=== PATIENT | female | born 1975 | race Caucasian/White ===

== ENCOUNTER 2019-12-19 10:29 | Inpatient (IN) | payer SELFPAY ==
[2019-12-19] VITALS (13 sets, daily range): BP systolic 81–101; BP diastolic 52–81; PULSE 68–100; RESP 16–22; TEMP 36.6–37.1; O2SAT 95–100; BMI 19.3
--- NOTE | 2019-12-19 11:28 | ECG_ITS ---
[facility] Test Date: 2019-12-19 Pat Name: Arvin Whiting Department: Room: Gender: Female Salon/Spa Manager: : 1975 Requested By: Lenny Jacobs Order Number: [id number] Lito MD: Kirby Irizarry M.D. Measurements Intervals Amorita Rate: 91 P: 57 VT: 96 QRS: 37 QRSD: 81 T: 59 QT: 474 QTc: 584 Interpretive Statements SINUS RHYTHM WITH SHORT VT INTERVAL ST DEVIATION AND MODERATE T-WAVE ABNORMALITY, CONSIDER ANTEROLATERAL ISCHEMIA [-0.1+ mV T WAVE IN V3-V6] Compared to ECG 12/27/2017 11:05:17 No significant changes Electronically Signed On 12-19-2019 20:55:26 CDT by Kirby Irizarry M.D. [email or web address]/[id number] f
--- NOTE | 2019-12-19 11:28 | CT_ITS ---
WS: [id number] CT ABDOMEN PELVIS TECHNIQUE: Contrast-enhanced CT of the abdomen and pelvis with coronal and sagittal reformatted image s. CLINICAL INFORMATION: abd pain COMPARISON: CT 12 DLP: 278.[address] scans at [facility] use at least one of these dose optimization techniques: automat ed exposure control; mA and/or kV adjustment per patient size (includes targeted exams where dose is matched to clinical indication); or iterative reconstruction. FINDINGS: Diffuse inflammatory stranding and edema about the pancreas consistent with pancreatitis. Recommend c orrelation with pancreatic function studies. Cystic dilatation of the pancreatic duct likely related to chronic pancreatitis. Edema and fluid along the tail the pancreas. A few pancreatic calcifications . Common bile duct at the head of the pancreas measures 6 mm. Fluid distended gallbladder with mild g allbladder wall thickening and enhancement. Small amount of edema about the gallbladder with tiny juan culi or sludge. Mild diffuse fatty infiltration of the liver. Portal vein and splenic vein are patent. Normal spleen. Lung bases are well aerated. Normal GE junction. Mild diffuse thickening of the distal stomach exten ding in the pylorus can be seen with gastritis or may be reactive. Normal renal parenchymal enhanceme nt. No hydronephrosis. Bilateral renal cysts. Lobulated right renal cyst with calcifications measures 2.5 x 5.1 cm. Normal caliber abdominal aorta. Splenic vein is not visualized and likely thrombosed. This is likely chronic but new from previous. Inflammatory stranding and edema about the central mese ntery with a few reactive lymph nodes. Normal caliber abdominal aorta. Left parasagittal fat-containing umbilical hernia. No herniated bowel. Sigmoid diverticulosis. No tramaine dence of acute diverticulitis. No evidence of small or large bowel obstruction. Heterogeneous uterine enhancement with multiple myometrial lesions likely fibroids. Lobulated left ovarian cystic-appearin g lesion measuring 2.5 CCM. This can be followed up with ultrasound. CT/CT abdomen pelvis w con* [id number] IMPRESSION: 1. Peripancreatic inflammatory changes and edema most consistent with pancreat itis. Recommend correlation with pancreatic function studies. 2. Lobulated dilatation of the pancreatic duct likely sequelae of chronic panc reatitis. 3. Fluid distended gallbladder with wall thickening and peripheral enhancement may be reactive due to pancreatitis. This can be further evaluated with ultras ound. Suggestion of tiny gallbladder calculi or sludge. 4. Diffuse thickening of the body of the stomach extending to the pylorus can be seen with gastritis or may be likely reactive due to the pancreatitis. 5. Bilateral renal cysts largest in the right unchanged from previous. 6. Fat-containing left parasagittal umbilical hernia. No herniated bowel. 7. Fibroid uterus. 8. Slightly lobulated left adnexal adnexal cystic lesion measuring 2.5 CM. Thi s can be followed up with ultrasound on an elective basis. Notified Lenny Yanez DO at 12/19/2019 12:36 PM.
--- NOTE | 2019-12-19 11:29 | XR_ITS ---
WS: [id number] XR chest 1V portable [id number] REASON FOR EXAM: dyspnea/cough FINDINGS: The heart and mediastinum are within normal limits. No active pulmonary parenchymal or pleural disease is noted. The bony thorax is intact. XR/XR chest 1V portable [id number] IMPRESSION: No acute chest abnormality.
[2019-12-19] MEDS: iohexol 300 mg/mL 100 mL Btl IV (12:04)
[2019-12-19 12:30] LABS: Basophils # 0.1 10^3/uL (0.0-0.1); Basophils % 0.4 %; Eosinophils # 0.1 10^3/uL (0.0-0.8); Eosinophils % 0.9 %; Hematocrit 36.8 % (37.0-47.0); Hemoglobin 12.5 g/dL (11.5-15.3); Lymphocytes # 1.9 10^3/uL (0.8-4.8); Lymphocytes % 13.7 %; Mean Corpuscular Hemoglobin 32.1 pg (28.0-34.0); Mean Corpuscular Volume 94.4 fL (81-99); Mean Platelet Volume 10.2 fL (7.4-10.4); Monocytes # 1.3 10^3/uL (0.2-0.9); Monocytes % 9.5 %; Neutrophils # 10.26 10^3/uL (1.8-7.7); Neutrophils % 74.5 %; Nucleated Red Blood Cells % 0 %; Platelet Count 572 10^3/cmm (130-400); Red Cell Distribution Width 15.9 % (12.1-15.1); White Blood Count 13.8 10^3/uL (4.0-10.0)
[2019-12-19] MEDS: morphine 4 mg/mL SDV 1 mL IVP ×2 (12:30→18:09)
[2019-12-19] MEDS: ondansetron 2 mg/ML SDV 2 mL 4 MG IVP (12:31)
[2019-12-19] MEDS: sodium chloride 0.9% 1,000 ML 999 ML IV ×2 (12:31→13:40)
--- NOTE | 2019-12-19 12:34 | US_ITS ---
WS: [id number] ULTRASOUND ABDOMEN LIMITED CLINICAL INFORMATION: abd pain COMPARISON: CT earlier today FINDINGS: Liver Size: Normal. Craniocaudal length: 16.1 cm. Echogenicity: Normal. Surface nodularity: None. Mass (size and location): None. Bile ducts Intrahepatic ducts: Normal. Common bile duct diameter: 0.8 cm. Gallbladder Fluid distended gallbladder. Gallbladder wall measures 2.4 mm with mild thickening. Prominent common bile duct measuring 8 mm. Gallbladder sludge. No pericholecystic fluid. Pancreas Normal as visualized. Right kidney: Right renal cysts Hydronephrosis: None. Size: 10.6 cm x 5.2 cm x 5.3 cm. Abdominal aorta and IVC Visualized portions are normal. Ascites: None. US/US gall bladder [id number] IMPRESSION: 1. Fluid distended gallbladder with mild gallbladder wall thickening. Gallblad jimmie sludge. No pericholecystic fluid. 2. Prominent common bile duct measuring 8 mm. MRCP could be obtained to exclud e common bile duct calculus. 3. Incidental right renal cysts. No hydronephrosis.
[2019-12-19 13:02] LABS: Lactic Sepsis W/Reflex 1.7 mmol/L (0.5-2.2)
[2019-12-19 13:03] LABS: Alanine Aminotransferase 50 U/L (0-33); Albumin Level 2.6 g/dL (3.5-5.2); Alkaline Phosphatase 225 IU/L (35-105); Anion Gap 14.2 (5-19); Aspartate Amino Transferase 35 U/L (0-32); Blood Urea Nitrogen 5 mg/dL (6-20); Calcium 8.5 mg/dL (8.5-10.5); Carbon Dioxide 31 mmol/L (22-29); Chloride 91 mmol/L (98-107); Creatinine Clr Calc Pharmacy 137.1599; Globulin 3.6 g/dL (1.3-4.6); Glomerular Filtration Rate 135.3 mL/min (90-130); Glucose 113 mg/dL (65-115); Lipase 56 U/L (13-60); Osmolality Calculated 276 mOsm/kg (285-295); Sodium 134 mmol/L (136-145); Total Bilirubin 0.5 mg/dL (0.15-1.2); Total Protein 6.2 g/dL (6.6-8.7)
[2019-12-19 13:10] LABS: Ketone (Acetest) Serum Negative (Negative); Potassium 2.2 mmol/L (3.5-5.1)
[2019-12-19 13:10] LABS: Glucose Urine UA Norm (Normal); Ketones Urine Negative (Negative); Protein Urine 1+ (Negative)
[2019-12-19 13:11] LABS: Add Urine Microscopic? YES; Leukocyte Esterase Urine Trace (Negative)
[2019-12-19 13:15] LABS: Urine Color Red (Yellow)
[2019-12-19 13:18] LABS: Bilirubin Urine Neg (Negative); Urine Appearance Cloudy (CLEAR); Urobilinogen Urine Norm (Negative)
[2019-12-19 13:19] LABS: Blood Urine 3+ (Negative); Nitrate Urine Negative (Negative); Sulfosalicylic Acid Urine Positive (Negative); pH Urine 8 (5-7)
[2019-12-19 13:21] LABS: Add Urine Culture? Yes; RBC Urine TOO NUMEROUS TO CNT /hpf (0-2); Squamous Epithelial Cell Urine 0-4 /hpf (0-5)
[2019-12-19] MEDS: morphine 4 mg/mL SDV 1 mL 2 MG IVP (13:40)
[2019-12-19] MEDS: potassium chloride premix 100 ML 25 MEQ IV ×2 (13:40→18:45)
[2019-12-19 13:49] LABS: Bacteria Urine 1+ /hpf
--- NOTE | 2019-12-19 14:01 | W.ED.NAVMDI ---
HPI - Nausea/Vomiting/Diarrhea General: Chief complaint: Nausea/Vomiting/Diarrhea Stated complaint: N/V Time Seen by Provider: 12/19/19 10:45 History of Present Illness: HPI Narrative: 44-year-old female comes in complaining of nausea vomiting for the last 2 weeks. She has a history of recurrent pancreatitis she does still drink alcohol but only admits to drinking alcohol once a week. She has had problems in the past with several admissions. She does not have any esophageal varices or cirrhosis that she knows of. She states she is not been able to keep down any food or fluids for the last 2 weeks. She denies any chest pain denies any difficulty with breathing. MD elicited complaint: nausea and vomiting Pertinent past history: pacreatitis Onset (ago): week(s) (2) Description of vomiting: bilious Associated nausea: Yes Associated abdominal pain: Yes Location of pain: LUQ Pain consistency: constant Severity: severe Quality: cramping Exacerbating factors: eating Relieving factors: other (Fasting) Associated symtoms: Reports bloating, decreased urine output and nausea; Denies altered mental status, anxiety, change in vision, chest pain, cough, diaphoresis, dizziness, dysuria, epistaxis, fatigue, fecal incontinence, fevers/chills, headache(s), anorexia, malaise, myalgias, numbness, palpitations, rash, short of breath, syncope, tenesmus, tinnitus or weakness Review of Systems Const: Denies: fatigue, malaise or diaphoresis Eyes: Denies: change in vision ENMT: Denies: tinnitus or epistaxis Card: Denies: chest pain, palpitations or syncope Resp: Denies: dyspnea, productive cough or non-productive cough GI: Reports: abdominal pain, nausea, vomiting and bloating; Denies: fecal incontinence : Denies: dysuria Skin/Breast: Denies: rash or pruritus Neuro: Denies: headache(s) or dizziness Psych: Denies: anxiety PFSH ED PFSH: Medical History Pancreatitis Surgical History History of biliary duct stent placement History of biliary stenting and removal. Possible biliary leak. History of History of right oophorectomy S/P clamping of cerebral aneurysm Family History Other No significant family history Social History Smoking and tobacco status: current every day smoker cigarettes Packs smoked per day: 0.5 Alcohol intake: current Alcohol intake frequency: few times a week Lives independently: Yes Household members: spouse Marital status: Current occupational status: unemployed Female Reproductive History: Date of last menstrual period: 12/19/19 Physical Exam Const: COMMON NORMALS: no acute distress EXAM LIMITATIONS: no altered mental status GENERAL APPEARANCE: cooperative and comfortable ORIENTATION/CONSCIOUSNESS: Yes awake, Yes oriented to person, Yes oriented to place and Yes oriented to time HENMT: COMMON NORMALS: normocephalic, atraumatic and hearing grossly normal bilaterally HEAD & SCALP: normocephalic and atraumatic Eye: COMMON NORMALS: Equal, round and reactive pupils present, EOMs intact bilaterally, conjunctivae normal and no scleral icterus CONJUNCTIVA: Yes conjunctivae normal PUPIL: Yes Equal, round and reactive pupils present Neck/C-Spine: COMMON NORMALS: full ROM, no lymphadenopathy, supple and no JVD Lymph: LYMPHATIC: no lymphadenopathy noted and no lymphedema noted Resp: COMMON NORMALS: normal respiratory effort, No retractions, No use of accessory muscles and clear to auscultation bilaterally AUSCULTATION: clear to auscultation bilaterally Cardio: COMMON NORMALS: no JVD, regular rate, regular rhythm and No murmurs present (Cardio) RATE: regular rate RHYTHM: regular rhythm GI: COMMON NORMALS: Soft to palpation and No hepatosplenomegaly present AUSCULTATION: Yes normoactive bowel sounds PALPATION: Yes Soft to palpation, Yes Tenderness to palpation present (GI) (Epigastric and left upper quadrants), No Guarding due to palpation present (GI) and Yes No hepatosplenomegaly present Extremity: COMMON NORMALS: normal to inspection, capillary refill normal, no clubbing, cyanosis or edema, no calf tenderness and no pedal edema Neuro: SENSORIUM/ORIENTATION: Yes oriented to person, Yes oriented to place and Yes oriented to time Skin: COMMON NORMALS: no rashes or lesions noted GENERAL SKIN EXAM: no rashes or lesions noted Course Vital Signs: Vital signs: Vital Signs Temperature 98.4 F 12/21/19 17:14 Pulse Rate 91 12/21/19 17:14 Respiratory Rate 18 12/21/19 17:14 Blood Pressure 112/60 12/21/19 17:14 Pulse Oximetry 99 12/21/19 17:14 MDM - Nausea/Vomiting/Diarrhea Lab Data: Labs: Lab Results 12/19/19 12/19/19 12/19/19 Range/Units 12:20 12:20 12:20 WBC 13.8 H (4.0-10.0) 10^3/ uL RBC 3.90 L (4.1-5.3) 10^6/u L Hgb 12.5 (11.5-15.3) g/dL Hct 36.8 L (37.0-47.0) % MCV 94.4 (81-99) fL MCH 32.1 (28.0-34.0) pg MCHC 34.0 (30.0-36.0) g/dL RDW 15.9 H (12.1-15.1) % Plt Count 572 H (130-400) 10^3/c mm MPV 10.2 (7.4-10.4) fL Neut % (Auto) 74.5 % Lymph % (Auto) 13.7 % [place] % (Auto) 9.5 % Eos % (Auto) 0.9 % Baso % (Auto) 0.4 % Neut # (Auto) 10.26 H (1.8-7.7) 10^3/u L Lymph # (Auto) 1.9 (0.8-4.8) 10^3/u L [place] # (Auto) 1.3 H (0.2-0.9) 10^3/u L Eos # (Auto) 0.1 (0.0-0.8) 10^3/u L Baso # (Auto) 0.1 (0.0-0.1) 10^3/u L Nucleated RBC % (a uto) 0 % Nucleated RBCs # 0.0 /100WBC Sodium 134 L (136-145) mmol/L Potassium 2.2 L* (3.5-5.1) mmol/L Chloride 91 L (98-107) mmol/L Carbon Dioxide 31 H (22-29) mmol/L Anion Gap 14.2 (5-19) BUN 5 L (6-20) mg/dL Creatinine 0.5 (0.5-0.9) mg/dL GFR Calculation 135.3 H (90-130) mL/min Glucose 113 (65-115) mg/dL Calculated Osmolal ity 276 L (285-295) mOsm/k g Lactic Acid 1.7 (0.5-2.2) mmol/L Calcium 8.5 (8.5-10.5) mg/dL Total Bilirubin 0.5 (0.15-1.2) mg/dL AST 35 H (0-32) U/L ALT 50 H (0-33) U/L Alkaline Phosphata se 225 H (35-105) IU/L Total Protein 6.2 L (6.6-8.7) g/dL Albumin 2.6 L (3.5-5.2) g/dL Globulin 3.6 (1.3-4.6) g/dL Triglycerides (0-150) mg/dL Lipase 56 (13-60) U/L Urine Color (Yellow) Urine Appearance (CLEAR) Urine pH (5-7) Ur Specific Gravit y (1.005-1.030) Urine Protein (Negative) Urine Glucose (UA) (Normal) Urine Ketones (Negative) Urine Blood (Negative) Urine Nitrate (Negative) Urine Bilirubin (Negative) Prot Sulfosalicyli c Acd (Negative) Urine Urobilinogen (Negative) mg/dL Ur Leukocyte Agata ase (Negative) Urine RBC (0-2) /hpf Urine WBC (0-5) /hpf Ur Squamous Epith Cells (0-5) /hpf Amorphous Sediment Urine Bacteria (NONE) /hpf Serum Ketones Negative (Negative) 12/19/19 12/19/19 Range/Units 12:20 12:24 WBC (4.0-10.0) 10^3/ uL RBC (4.1-5.3) 10^6/u L Hgb (11.5-15.3) g/dL Hct (37.0-47.0) % MCV (81-99) fL MCH (28.0-34.0) pg MCHC (30.0-36.0) g/dL RDW (12.1-15.1) % Plt Count (130-400) 10^3/c mm MPV (7.4-10.4) fL Neut % (Auto) % Lymph % (Auto) % [place] % (Auto) % Eos % (Auto) % Baso % (Auto) % Neut # (Auto) (1.8-7.7) 10^3/u L Lymph # (Auto) (0.8-4.8) 10^3/u L [place] # (Auto) (0.2-0.9) 10^3/u L Eos # (Auto) (0.0-0.8) 10^3/u L Baso # (Auto) (0.0-0.1) 10^3/u L Nucleated RBC % (a uto) % Nucleated RBCs # /100WBC Sodium (136-145) mmol/L Potassium (3.5-5.1) mmol/L Chloride (98-107) mmol/L Carbon Dioxide (22-29) mmol/L Anion Gap (5-19) BUN (6-20) mg/dL Creatinine (0.5-0.9) mg/dL GFR Calculation (90-130) mL/min Glucose (65-115) mg/dL Calculated Osmolal ity (285-295) mOsm/k g Lactic Acid (0.5-2.2) mmol/L Calcium (8.5-10.5) mg/dL Total Bilirubin (0.15-1.2) mg/dL AST (0-32) U/L ALT (0-33) U/L Alkaline Phosphata se (35-105) IU/L Total Protein (6.6-8.7) g/dL Albumin (3.5-5.2) g/dL Globulin (1.3-4.6) g/dL Triglycerides 146 (0-150) mg/dL Lipase (13-60) U/L Urine Color Red (Yellow) Urine Appearance Cloudy (CLEAR) Urine pH 8 H (5-7) Ur Specific Gravit y 1.010 (1.005-1.030) Urine Protein 1+ H (Negative) Urine Glucose (UA) Norm (Normal) Urine Ketones Negative (Negative) Urine Blood 3+ H (Negative) Urine Nitrate Negative (Negative) Urine Bilirubin Neg (Negative) Prot Sulfosalicyli c Acd Positive (Negative) Urine Urobilinogen Norm (Negative) mg/dL Ur Leukocyte Agata ase Trace H (Negative) Urine RBC Too numerous to c nt H (0-2) /hpf Urine WBC 5-10 H (0-5) /hpf Ur Squamous Epith Cells 0-4 H (0-5) /hpf Amorphous Sediment Not Reportable Urine Bacteria 1+ H (NONE) /hpf Serum Ketones (Negative) Discharge Plan Discharge Patient Disposition: Admitted As Inpatient Admit Provider: Arturo Lemus Clinical Impression: Gastritis, Acute pancreatitis, Abnormal transaminases Condition: Stable Referrals: [facility], gastroenterology [Other] (Soonest available appointment for follow-up on gastritis, duodenitis, gallbladder changes with dilation, wall thickening 2.4 mm, CBD dilation 8 mm, epigastric discomfort possible pancreatitis.) Rebekah Duffy, ZAY [Referring] - 12/29/19 9:30 am (Gastritis, duodenitis, gallbladder changes with dilation, wall thickening 2.4 mm, CBD dilation 8 mm, normal HIDA, epigastric discomfort possible pancreatitis.) Patient Instructions: Sucralfate (By mouth), Potassium Chloride (By mouth), Pantoprazole (By mouth), Hydrocodone (By mouth), Uterine Fibroids (DC), Effects of Smoking, Alcohol, and Drugs on (GEN), Hypokalemia (DC), Umbilical Hernia (DC) Additional Instructions: Please avoid any alcohol whatsoever as it may contribute to inflammation of the stomach, stomach ulcers, as well as may trigger episode of pancreatitis. Avoid any NSAIDs like ibuprofen, Aleve, etc. Due to suspicion of gastritis, duodenitis you are given prescription for acid julio medication Protonix, you may also add sucralfate to help with symptoms. Advance your diet slowly as tolerating. Please make sure to follow-up with gastroenterology to consider additional evaluation by endoscopy to exclude other more dangerous causes of stomach wall thickening. Also to assess as discussed for possibility of episode of pancreatitis. Please have your primary care doctor follow-up your levels of sodium and potassium to make sure they are staying normal. Please discuss with your primary care doctor repeating urinalysis due to small amount of blood incidentally noted there. Please discuss with your primary care doctor regarding follow-up of incidentally found 2.5 cm cyst adjacent to left ovary. Discussed arrangement for follow-up ultrasound. Please discuss with your primary care doctor incidentally noted small umbilical hernia which is not containing any bowel. Interventions: ED Discharge Assessment Last Done: 12/19/19 20:37 ED Charges Last Done: 12/19/19 20:37 Discharge Date/Time: 12/19/19 20:55 Coding Level of Care Code ED Rim Turning Machine Operator for Chg Fwd Exam Comprehensive
[2019-12-19] MEDS: sodium chloride 0.9% 1,000 ML 150 ML IV (15:17)
--- NOTE | 2019-12-19 16:54 | PC.NURSE ---
transport to patient transported to MRI by ambulance.
--- NOTE | 2019-12-19 19:46 | PM.HP ---
Providers/Chief Complaint Chief Complaint: N/V History of Present Illness Arvin Whiting is a 44 year old female presents with 2 weeks of upper abdominal/gastric discomfort, nausea, vomiting, poor oral intake. Symptoms have not gotten better. She has had some episodes in the past which last several days, but this has been longer than that. Due to lack of improvement she decided to come into the ER. She has history of pancreatitis, biliary duct stenting after extensive ablation at [facility] in 2018, per her without finding of malignancy, but with possible biliary leak? With gallbladder still in place, with history of biliary sludge. In ER she is found dehydrated, received bolus of IV fluid, nausea and pain medication. With noted leukocytosis, although afebrile, blood pressure somewhat soft but without hypotension, additionally on laboratory work-up with finding of moderate alkaline phosphatase elevation up to 225, minimal AST and ALT elevation up to 35 and 50 respectively, normal T bili, microscopic hematuria, underwent assessment by CT abdomen pelvis with findings of peripancreatic inflammation and edema concerning for pancreatitis, lobulated dilation of pancreatic duct suspected sequela of chronic pancreatitis, fluid distended gallbladder with wall thickening, peripheral enhancement, possibly reactive, suggestion of tiny gallbladder calculi or sludge. Diffuse thickening of the body of the stomach extending to the pylorus suspicious for gastritis. Bilateral renal cysts unchanged from prior. Fat-containing left parasagittal umbilical hernia. Fibroid uterus. Slightly lobulated left adnexal cystic lesion measuring 2.5 cm. Follow-up: Bladder ultrasound with fluid distended gallbladder with mild gallbladder wall thickening, gallbladder sludge, no pericholecystic fluid. Prominent common bile duct at 8 mm, consider MRCP, incidental right renal cysts. No hydronephrosis. Normal pancreas. Lipase was 56. She does not drink alcohol which she says does on the weekends with her up to 3 drinks per week. Smokes half pack of cigarettes per day. Discussed with her and her concern for possibility of pancreatitis, although lipase is noted normal. Does have history of biliary duct instrumentation, stenting which had subsequently been taken out after follow-up with [facility] specialist. MRCP was considered and attempted in ER, however, due to presence of aneurysmal clips, MRI was not deemed safe until further information is available. We discussed that MRCP can be immediately obtained. Will try to request records from [facility] regards to her prior brain surgery for aneurysm. We discussed possibilities of pancreatitis, possibilities of gastritis, possibly secondary to alcohol intake. She denies NSAID use. Discussed that in case of pancreatitis we do not have possibility for evaluation by ERCP or gastroenterology here. Discussed risks of progression to severe pancreatitis and plans of management here including for now supportive care, and obtaining additional information to allow for assessment by MRCP, and that transfer still may be necessary depending on her condition and findings. She is currently wanting to stay here to initiate assessment and treatment plan as discussed. Does agree and understand that we may seek transfer additionally depending on further developments. Review of Systems Const: Reports: change in appetite; Denies: fever(s), chills, body aches or malaise Eyes: Denies: change in vision or eye redness ENMT: Denies: throat pain, oral sores or ear or mastoid pain Card: Denies: chest pain, edema, pre-syncope or dyspnea on exertion Resp: Denies: dyspnea, productive cough, change in phlegm color or hemoptysis GI: Reports: abdominal pain, nausea, vomiting and other (Sometimes gets loose stools which she is reviewed to levothyroxine. Denies chronic persistent diarrhea.); Denies: hematemesis, coffee ground emesis, constipation, hematochezia or melena : Denies: flank pain, urinary frequency or hematuria Musc: Denies: back pain, joint swelling or joint redness Skin/Breast: Denies: rash, sores or new lesions Neuro: Denies: headache(s), numbness in extremities, weakness in extremities, dizziness, confusion or seizure-like activity Endo: Denies: polyuria or polydipsia Tom/Lymph: Denies: easy bleeding or purpura All/Imm: Denies: urticaria, throat swelling or tongue swelling Medications/Allergies Home Medications Medication Instructions Recorded Confirmed Last Taken Type acetaminophen [Tylenol Extra 1,000 mg PO PRN 12/19/19 12/19/19 Unknown History Strength] alum-mag hydroxide-simeth [Maalox 20 ml PO PRN 12/19/19 12/19/19 12/17/19 History Maximum Strength] diphenhydramine HCl [Benadryl] 75 mg PO PRN 12/19/19 12/19/19 Unknown History fluoxetine 40 mg PO DAILY 12/19/19 12/19/19 12/19/19 History levothyroxine [Euthyrox] 25 mcg PO DAILY 12/19/19 12/19/19 12/19/19 History metoprolol tartrate 50 mg PO BID 12/19/19 12/19/19 12/19/19 History trazodone 150 mg PO BEDTIME 12/19/19 12/19/19 12/18/19 History Allergies Allergy/AdvReac Type Severity Reaction Status Date / Time codeine Allergy ALGY-Swell Verified 12/19/19 12:35 Lip/Tongue/Throat meperidine [From Demerol] Allergy ADR-Swelling Verified 12/19/19 12:35 of the Eye PFSH Acute PFSH: Medical History Pancreatitis Surgical History History of biliary duct stent placement History of biliary stenting and removal. Possible biliary leak. History of History of right oophorectomy S/P clamping of cerebral aneurysm Family History Other No significant family history Social History Smoking and tobacco status: current every day smoker cigarettes Packs smoked per day: 0.5 Alcohol intake: current Alcohol intake frequency: few times a week Substance/Drug Use: never Lives independently: Yes Household members: spouse Marital status: Current occupational status: unemployed Female Reproductive History: Date of last menstrual period: 12/19/19 Vitals/I&O/Wt Last Vital Signs Temp 97.9 F 12/19/19 10:34 Pulse 71 12/19/19 18:30 Resp 22 H 12/19/19 18:30 BP 85/59 12/19/19 18:30 Pulse Ox 97 12/19/19 18:30 12/19/19 12/19/19 12/19/19 06:59 14:59 22:59 Intake Total 1000 / 1000 100 / 1100 Balance 1000 / 1000 100 / 1100 Weight last 48 hrs Weight 55.792 kg Physical Exam Const: COMMON NORMALS: no acute distress and patient oriented x3 HENMT: COMMON NORMALS: oropharynx normal Neck/C-Spine: COMMON NORMALS: no JVD Resp: COMMON NORMALS: normal respiratory effort and clear to auscultation bilaterally AUSCULTATION: clear to auscultation bilaterally Cardio: COMMON NORMALS: no JVD, regular rhythm, S1 normal heart sound present, S2 normal heart sound present and No murmurs present (Cardio) RHYTHM: regular rhythm HEART SOUNDS: S1 normal heart sound present and S2 normal heart sound present GI: COMMON NORMALS: Normal to inspection, nondistended, normoactive bowel sounds present and Soft to palpation PALPATION: Yes Soft to palpation and Yes Tenderness to palpation present (GI) (Across upper abdomen, periumbilical more so on the left, less on the right upper quadrant) Extremity: COMMON NORMALS: no joint enlargement and no pedal edema Neuro: COMMON NORMALS: patient oriented x3 and moves all extremities Skin: COMMON NORMALS: no rashes or lesions noted GENERAL SKIN EXAM: no rashes or lesions noted Data : 12/19/19 12:20 12/19/19 12:20 A&P Assessment and plan (1) Gastritis: Gastric wall thickening itching extending to the pylorus. She does have tenderness mostly on the left side. Discussed with her , pain status is a possibility, but also there is possibility that she is treated gastritis with some local inflammation extending to the pancreas, pancreas appears normal to sound. Lipase is normal. She does not alcohol on the weekends, says only 2-3 drinks, although kind of looked at the when she was stating this. He did confirm this. At this time treated with bowel rest as below. PI BID. For as needed for nausea. Monitor hemoglobin. She does not take NSAIDs. Status: Acute (2) Pancreatitis: Findings concerning for possible pancreatitis on CT, however, life is normal, pancreas also appears normal on ultrasound. I suspect more that this may be secondary to gastritis, but discussed with her we cannot exclude that she does not have pancreatitis. Even with normal lipase, if has chronic pancreatitis acute on chronic pancreatitis is still possible. At this time conservative management with bowel rest, supportive care with IV hydration, nausea and pain medications. Discussed with her diet so far in ER they have had no success obtaining MRCP due to prior aneurysmal clips. We will need more information before can proceed with that test. Discussed with her we do not have GI or ERCP available in house. She is wanting to stay here to initiate conservative treatment for now, but understands that we may still need to seek transfer to higher level facility depending on findings or her condition. She understands she may worsen and potentially progressed to severe, potentially life-threatening pancreatitis. She also requests to have sips of water (not swabs), and still wants to have them after discussion of bowel rest and expressed concern for possibly worsening pancreatitis. States that she understands the risks. States that she will let us know if she is at all feeling worse. We will check triglycerides. Discussed with her to abstain from any alcohol intake as she says she takes 2-3 drinks on the weekends . She and her verbalized understanding that any alcohol may still trigger pancreatitis. Would encourage also smoking cessation. She states that previously was evaluated for malignancy by ERCP, without finding of malignancy. Her stated that she has had biliary stents placed at [facility], and subsequently removed. They are not sure why exactly, but thought that perhaps there was some leak . She still has her gallbladder, and says that specialist did not think it was necessary to have it removed (despite history of sludge). Discussed with them that concern may be for possibility of prior stricture along biliary pancreatic ducts, and perhaps this could have triggered the pancreatitis. Discussed that if this were the case, she again requires additional assessment and treatment, possibly with ERCP, possibly stenting. They understand that her condition may worsen unexpectedly. Status: Acute (3) Gallbladder dilatation: GB dilation noted on ultrasonography, with some wall thickening up to 2.4 mm, CBD dilation up to 8 mm. Briefly discussed with on-call surgeon, and this does not appear to be overly impressive, however, will monitor. She actually is less tender on the right side, more so in epigastrium, left side, periumbilically. There is no pericholecystic fluid. Per discussion concern for acute cholecystitis at this time is lower. She does have some alkaline phosphatase elevation up to 250, minimal elevation of AST and ALT. T bili is normal. Monitor liver parameters and symptomatology. Bowel rest. For now no antibiotics, but low threshold to initiate in case of any concerns for infection. She appears to be hemoconcentrated with some elevation platelets, WBC count, appears dry on exam. WBC elevation I believe is secondary to her dehydration, vomiting. She does appear to perhaps have some chronic elevation also of white blood cells and platelet levels going back to 2018 December and February. Status: Acute (4) Hypokalemia: Received replacement. Recheck. Check magnesium. Status: Acute (5) Hyponatremia: Mild hyponatremia, hypovolemic secondary to dehydration, vomiting. Received a liter of fluid bolus. Continue IV hydration. Recheck. Status: Acute (6) Transaminitis: Minimal elevation of AST and ALT. Suspected secondary to dehydration, vomiting, possibly some local inflammation, perhaps from gastritis, duodenitis. Does have alkaline phosphatase levels however this appears to be more chronic, although currently is higher than before at 225. Monitor. Additional assessment and treatment as above. Status: Acute (7) Microscopic hematuria: Does have some renal cysts noted bilaterally. Perhaps the reason. Otherwise not suggestive of UTI. Denies any urinary symptoms. No renal stone. At this time monitor, and may benefit from additional outpatient reassessment. Status: Acute (8) Smoking addiction: Encourage cessation. Nicotine patch. Status: Acute (9) Fibroid uterus: Incidentally noted. Status: Acute (10) Adnexal cyst: 2.5 cm left adnexal cyst incidentally noted. Consider nonemergent additional evaluation by ultrasonography. Status: Acute (11) Umbilical hernia: Incidentally noted. Not containing bowel. Follow-up in office. Status: Acute Attestations Medical Necessity Statement*: Admission of over 2 midnights is continued for assessment of management of severe gastritis, duodenitis, possible pancreatitis, with history of pancreatitis in the past requiring additional extensive assessment. Coding Level of Care Code Acute [employer] Director for [facility] Fwd Diagnoses Gastritis K29.70 Pancreatitis K85.90 Gallbladder dilatation K82.8 Hypokalemia E87.6 Hyponatremia E87.1 Transaminitis R74.01 Microscopic hematuria R31.29 Smoking addiction F17.200 Fibroid uterus D25.9 Adnexal cyst N94.9 Umbilical hernia K42.9
[2019-12-19 20:16] LABS: Triglycerides 146 mg/dL (0-150)
[2019-12-19] MEDS: pantoprazole 40 mg SDV IVP (20:20)
[2019-12-19] MEDS: trazodone 150 mg Tablet PO (22:09)
[2019-12-19] MEDS: nicotine 14 mg Patch 1 PATCH TRANSDERMA (22:09)
[2019-12-19] MEDS: dextrose 5%-sod chloride 0.45% 1,000 ML 100 ML IV (22:10)
[2019-12-19] MEDS: heparin 5,000 unit/mL INJ 1 mL 5000 UNIT SUBCUT (22:10)
[2019-12-20] VITALS (10 sets, daily range): BP systolic 91–122; BP diastolic 59–73; PULSE 84–113; RESP 17–20; TEMP 36.2–37.5; O2SAT 92–99; BMI 21.6
[2019-12-20] MEDS: morphine 4 mg/mL SDV 1 mL IVP ×4 (02:00→17:19)
[2019-12-20 03:34] LABS: Basophils % 0.3 %; Eosinophils # 0.2 10^3/uL (0.0-0.8); Eosinophils % 2.6 %; Hematocrit 28.6 % (37.0-47.0); Hemoglobin 9.3 g/dL (11.5-15.3); Lymphocytes # 2.3 10^3/uL (0.8-4.8); Mean Corpuscular HGB Conc 32.5 g/dL (30.0-36.0); Mean Corpuscular Hemoglobin 31.5 pg (28.0-34.0); Mean Corpuscular Volume 96.9 fL (81-99); Mean Platelet Volume 10.5 fL (7.4-10.4); Monocytes # 0.8 10^3/uL (0.2-0.9); Monocytes % 9.1 %; Neutrophils # 5.67 10^3/uL (1.8-7.7); Neutrophils % 61.5 %; Nucleated Red Blood Cells % 0 %; Platelet Count 445 10^3/cmm (130-400); Red Blood Count 2.95 10^6/uL (4.1-5.3); Red Cell Distribution Width 16.5 % (12.1-15.1); White Blood Count 9.2 10^3/uL (4.0-10.0)
[2019-12-20 03:58] LABS: Alanine Aminotransferase 35 U/L (0-33); Alkaline Phosphatase 169 IU/L (35-105); Anion Gap 9.9 (5-19); Aspartate Amino Transferase 21 U/L (0-32); Blood Urea Nitrogen 3 mg/dL (6-20); Calcium 7.6 mg/dL (8.5-10.5); Carbon Dioxide 25 mmol/L (22-29); Chloride 111 mmol/L (98-107); Globulin 2.9 g/dL (1.3-4.6); Glucose 120 mg/dL (65-115); Lipase 45 U/L (13-60); Osmolality Calculated 294 mOsm/kg (285-295); Sodium 143 mmol/L (136-145); Total Bilirubin 0.3 mg/dL (0.15-1.2); Total Protein 4.9 g/dL (6.6-8.7)
[2019-12-20 03:59] LABS: Magnesium 2.2 mg/dL (1.7-2.3)
[2019-12-20 04:01] LABS: Potassium 2.9 mmol/L (3.5-5.1)
[2019-12-20] MEDS: lidocaine 1% 5 ML in potassium chloride premix 100 ML 25 ML IV (05:38)
[2019-12-20] MEDS: pantoprazole 40 mg SDV IVP ×2 (08:11→21:12)
[2019-12-20] MEDS: fluoxetine 20 mg Capsule 40 MG PO (08:11)
[2019-12-20] MEDS: levothyroxine 25 mcg Tablet PO (08:11)
[2019-12-20] MEDS: heparin 5,000 unit/mL INJ 1 mL 5000 UNIT SUBCUT ×2 (08:11→21:40)
[2019-12-20] MEDS: nicotine 14 mg Patch 1 PATCH TRANSDERMA (08:12)
--- NOTE | 2019-12-20 09:23 | PM.PN ---
Subjective Subjective: Interval history: She is feeling better today. Says she is starving for all kinds of foods and wants to have some water BRENT. Wants to try some broth and jello. Otherwise no vomiting. Is still having some upper abdominal Vitals/I&O/Wt Last Vital Signs Temp 98.7 F 12/20/19 08:00 Pulse 96 12/20/19 08:00 Resp 20 H 12/20/19 08:12 BP 107/73 12/20/19 08:00 Pulse Ox 99 12/20/19 08:00 12/19/19 12/20/19 12/20/19 22:59 06:59 14:59 Intake Total 1100 / 2100 Output Total 400 / 400 Balance 1099 / 2099 -400 / -400 Weight last 48 hrs Weight 62.596 kg Weight 55.792 kg Physical Exam Const: COMMON NORMALS: no acute distress and patient oriented x3 OTHER: Awake, alert, full of energy. HENMT: COMMON NORMALS: oropharynx normal Neck/C-Spine: COMMON NORMALS: no JVD Resp: COMMON NORMALS: normal respiratory effort and clear to auscultation bilaterally AUSCULTATION: clear to auscultation bilaterally Cardio: COMMON NORMALS: no JVD, regular rhythm, S1 normal heart sound present, S2 normal heart sound present and No murmurs present (Cardio) RHYTHM: regular rhythm HEART SOUNDS: S1 normal heart sound present and S2 normal heart sound present GI: COMMON NORMALS: Normal to inspection, nondistended, normoactive bowel sounds present and Soft to palpation PALPATION: Yes Soft to palpation and Yes Tenderness to palpation present (GI) (Less tenderness across upper abdomen, periumbilical more so on the left, less on the right upper quadrant) Extremity: COMMON NORMALS: no joint enlargement and no pedal edema Neuro: COMMON NORMALS: patient oriented x3 and moves all extremities Skin: COMMON NORMALS: no rashes or lesions noted GENERAL SKIN EXAM: no rashes or lesions noted Data : 12/20/19 03:17 12/20/19 03:17 A&P Assessment and plan (1) Gastritis: She is feeling better today. Is hungry. Pain is somewhat better. We discussed again regarding differential diagnosis with suspicion of gastritis, but also possible pancreatitis, although lipase again has not risen today. She is adamant that if she wants to try drinking some water, wants to try some clear liquid diet. Discussed with her if we are able to obtain MRCP for now we will hold p.o. intake, but if this needs to be delayed further will start. She is agreeable. At this time continue PPI. Will check for H. pylori. Continue to encourage avoidance of alcohol. Gastric wall thickening on CT extending to the pylorus. She does have tenderness mostly on the left side. Discussed with her , pain status is a possibility, but also there is possibility that she is treated gastritis with some local inflammation extending to the pancreas, pancreas appears normal on ultrasound. Lipase is normal. She does drinks alcohol on the weekends. Status: Acute (2) Pancreatitis: Lipase without elevation. Abdominal pain is better today. She is hungry. Liver parameters are better. At this time suspicion is still mostly for gastritis, although discussed with her possible pancreatitis. We have just obtained records from [facility] regarding past intracranial surgery, and so we will see whether she can have MRCP done. She wants to try liquids after that. She does drink alcohol on weekends, discussed with her cessation. Continue to reinforce. Triglycerides not elevated. Calcium is normal. No biliary stones, gallbladder sludge. Previously CBD stenting, possible leak? Not clear if due to stenosis. Not clear if that is why gallbladder has been left in place after extensive evaluation and treatment at [facility]. Stents have since been removed. Continue supportive care at this time. We discussed further assessment and treatment options. We will try to obtain MRCP here and in addition depending on her clinical condition we will try to get her to be seen by GI either on outpatient basis versus requiring hospital hospital transfer. She is agreeable with plans. Findings concerning for possible pancreatitis on CT, however, lipase is normal, pancreas also appears normal on ultrasound. I suspect more that this may be secondary to gastritis, but discussed with her we cannot exclude that she does not have pancreatitis. Even with normal lipase, if has chronic pancreatitis acute on chronic pancreatitis is still possible. At this time conservative management with bowel rest, supportive care with IV hydration, nausea and pain medications. Discussed with her to abstain from any alcohol intake as she says she takes 2-3 drinks on the weekends . She and her verbalized understanding that any alcohol may still trigger pancreatitis. Would encourage also smoking cessation. She states that previously was evaluated for malignancy by ERCP, without finding of malignancy. Her stated that she has had biliary stents placed at [facility], and subsequently removed. They are not sure why exactly, but thought that perhaps there was some leak . She still has her gallbladder, and says that specialist did not think it was necessary to have it removed (despite history of sludge). Discussed with them that concern may be for possibility of prior stricture along biliary pancreatic ducts, and perhaps this could have triggered the pancreatitis. Discussed that if this were the case, she again requires additional assessment and treatment, possibly with ERCP, possibly stenting. They understand that her condition may worsen unexpectedly. Status: Acute (3) Gallbladder dilatation: Abdominal pain is a little bit better. She is hungry. GB dilation noted on ultrasonography, with some wall thickening up to 2.4 mm, CBD dilation up to 8 mm. Briefly discussed with on-call surgeon, and this does not appear to be overly impressive, however, will monitor. She actually is less tender on the right side, more so in epigastrium, left side, periumbilically. There is no pericholecystic fluid. Per discussion concern for acute cholecystitis at this time is lower. She does have some alkaline phosphatase elevation up to 250, minimal elevation of AST and ALT. T bili is normal. Monitor liver parameters and symptomatology. Bowel rest. For now no antibiotics, but low threshold to initiate in case of any concerns for infection. She appears to be hemoconcentrated with some elevation platelets, WBC count, appears dry on exam. WBC elevation I believe is secondary to her dehydration, vomiting. She does appear to perhaps have some chronic elevation also of white blood cells and platelet levels going back to 2018 December and February. Status: Acute (4) Hypokalemia: Additional replacement this morning. Normal magnesium. Status: Acute (5) Hyponatremia: Mild hyponatremia, hypovolemic secondary to dehydration, vomiting. Received a liter of fluid bolus. Continue IV hydration. Recheck. Status: Acute (6) Transaminitis: Improving. Monitor. Pending assessment with MRCP. Minimal elevation of AST and ALT. Suspected secondary to dehydration, vomiting, possibly some local inflammation, perhaps from gastritis, duodenitis. Does have alkaline phosphatase levels however this appears to be more chronic, although currently is higher than before at 225. Status: Acute (7) Microscopic hematuria: Does have some renal cysts noted bilaterally. Perhaps the reason. Otherwise not suggestive of UTI. Denies any urinary symptoms. No renal stone. At this time monitor, and may benefit from additional outpatient reassessment. Status: Acute (8) Smoking addiction: Encourage cessation. Nicotine patch. Status: Acute (9) Fibroid uterus: Incidentally noted. Status: Acute (10) Adnexal cyst: 2.5 cm left adnexal cyst incidentally noted. Consider nonemergent additional evaluation by ultrasonography. Status: Acute (11) Umbilical hernia: Incidentally noted. Not containing bowel. Follow-up in office. Status: Acute Attestations Medical Necessity Statement*: Continue admission for assessment and management gastritis, possible pancreatitis, with pancreatitis biliary stenting in the past, protracted nausea or vomiting, dehydration with lack of oral intake. Coding Level of Care Code Acute Broadcast Correspondent for [facility] Fwd Exam Comprehensive Diagnoses Gastritis K29.70 Pancreatitis K85.90 Gallbladder dilatation K82.8 Hypokalemia E87.6 Hyponatremia E87.1 Transaminitis R74.01 Microscopic hematuria R31.29 Smoking addiction F17.200 Fibroid uterus D25.9 Adnexal cyst N94.9 Umbilical hernia K42.9
--- NOTE | 2019-12-20 09:57 | PC.RESP ---
SMOKING CESSATION INFORMATION SENT TO PATIENT.
[2019-12-20 11:34] LABS: H. Pylori IgG Antibody Negative (Negative)
[2019-12-20 13:02] LABS: Amphetamines Screen Urine Negative (Negative); Barbiturates Screen Urine Negative (Negative); Benzodiazepines Screen Urine Negative (Negative); Cocaine Screen Urine Negative (Negative); Opiate Screen Urine Positive (Negative); PCP Screen Urine Negative (Negative); THC Screen Urine Negative (Negative)
[2019-12-20] MEDS: dextrose 5%-sod chloride 0.45% 1,000 ML 100 ML IV (14:44)
[2019-12-20] MEDS: trazodone 150 mg Tablet PO (21:39)
[2019-12-21] VITALS (7 sets, daily range): BP systolic 90–112; BP diastolic 57–64; PULSE 91–105; RESP 17–20; TEMP 36.9–37.4; O2SAT 95–99
[2019-12-21] MEDS: dextrose 5%-sod chloride 0.45% 1,000 ML 100 ML IV (00:49)
[2019-12-21] MEDS: morphine 4 mg/mL SDV 1 mL IVP (02:10)
[2019-12-21 05:43] LABS: Basophils # 0.1 10^3/uL (0.0-0.1); Basophils % 0.8 %; Eosinophils # 0.3 10^3/uL (0.0-0.8); Eosinophils % 2.5 %; Hemoglobin 10.6 g/dL (11.5-15.3); Lymphocytes # 2.2 10^3/uL (0.8-4.8); Lymphocytes % 19.6 %; Mean Corpuscular HGB Conc 32.1 g/dL (30.0-36.0); Mean Corpuscular Hemoglobin 31.3 pg (28.0-34.0); Mean Corpuscular Volume 97.3 fL (81-99); Mean Platelet Volume 10.9 fL (7.4-10.4); Monocytes # 0.8 10^3/uL (0.2-0.9); Monocytes % 7.1 %; Neutrophils # 7.56 10^3/uL (1.8-7.7); Neutrophils % 68.6 %; Nucleated Red Blood Cells % 0 %; Platelet Count 533 10^3/cmm (130-400); Red Blood Count 3.39 10^6/uL (4.1-5.3)
[2019-12-21 06:24] LABS: Alanine Aminotransferase 35 U/L (0-33); Albumin Level 2.3 g/dL (3.5-5.2); Alkaline Phosphatase 198 IU/L (35-105); Anion Gap 13.9 (5-19); Aspartate Amino Transferase 25 U/L (0-32); Calcium 8.8 mg/dL (8.5-10.5); Carbon Dioxide 25 mmol/L (22-29); Chloride 114 mmol/L (98-107); Globulin 3.3 g/dL (1.3-4.6); Glomerular Filtration Rate 135.3 mL/min (90-130); Glucose 109 mg/dL (65-115); Lipase 39 U/L (13-60); Sodium 150 mmol/L (136-145); Total Bilirubin 0.5 mg/dL (0.15-1.2); Total Protein 5.6 g/dL (6.6-8.7)
[2019-12-21 06:33] LABS: Blood Urea Nitrogen 1 mg/dL (6-20); Osmolality Calculated 306 mOsm/kg (285-295); Potassium 2.9 mmol/L (3.5-5.1)
--- NOTE | 2019-12-21 08:00 | NM_ITS ---
WS: [id number] NUCLEAR MEDICINE HIDA SCAN CLINICAL INFORMATION: gb dilation, wall thickening, CBD dilation TECHNIQUE: Following intravenous administration of 7.9 mCi of technetium 99m mebrofenin, images of th e abdomen were obtained over the course of 60 minutes. Next, gallbladder ejection fraction was determ ined by obtaining preprandial and one-hour postprandial images of the gallbladder following oral khadar stion of Ensure. COMPARISON: Ultrasound December 19, 2019 FINDINGS: Normal hepatic uptake at 5 minutes. Gallbladder is visualized by 10 minutes. Normal common bile duct and small bowel activity. No evidence of acute cholecystitis or choledocholithiasis. Normal hepatic e xcretion. Gallbladder ejection fraction 82% within normal limits. No evidence of chronic cholecystitis. NM/NM hepatobiliary w phar* [id number] IMPRESSION: 1. No evidence of acute or chronic cholecystitis. 2. Gallbladder ejection fraction 82% within normal limits.
[2019-12-21] MEDS: heparin 5,000 unit/mL INJ 1 mL 5000 UNIT SUBCUT (08:36)
[2019-12-21] MEDS: nicotine 14 mg Patch 1 PATCH TRANSDERMA (08:36)
[2019-12-21] MEDS: dextrose 5% 1,000 ML 75 ML IV (08:36)
[2019-12-21] MEDS: pantoprazole 40 mg SDV IVP (08:36)
[2019-12-21] MEDS: levothyroxine 25 mcg Tablet PO (08:37)
[2019-12-21] MEDS: fluoxetine 20 mg Capsule 40 MG PO (08:37)
[2019-12-21] MEDS: potassium chloride ER 10 mEq Tablet 40 MEQ PO ×2 (08:37→14:24)
[2019-12-21] MEDS: HYDROcodone-acetaminophen 5-325 mg Tablet 1 TAB PO (14:24)
--- NOTE | 2019-12-21 16:10 | PC.NURSE ---
Discharge note Patient discharge instructions given per physician orders. New meds with side effects taught. Patient verbalized understanding. Iv removed with catheter intact. Pressure dressing applied. Patient tolerated well.
--- NOTE | 2019-12-21 20:15 | P.DS_ITS ---
Discharge Providers Date of Admission: 12/19/19 18:17 Date of Discharge: December 21, 2019 Attending Provider at Admission: Arturo Lemus Attending Provider at Discharge: Arturo Lemus Diagnoses at Discharge Discharge Diagnosis (1) Gastritis: Status: Acute (2) Pancreatitis: Status: Acute (3) Gallbladder dilatation: Status: Acute (4) Hypokalemia: Status: Acute (5) Hyponatremia: Status: Acute (6) Transaminitis: Status: Acute (7) Microscopic hematuria: Status: Acute (8) Smoking addiction: Status: Acute (9) Fibroid uterus: Status: Acute (10) Adnexal cyst: Status: Acute (11) Umbilical hernia: Status: Acute Reason for Visit Reason for Visit: N/V Hospital Course Hospital Course: Arvin Whiting is a 44 year old female presented with 2 weeks of upper abdominal/gastric discomfort, nausea, vomiting, poor oral intake. She has had some episodes in the past which last several days, but this has been longer than that. Due to lack of improvement she decided to come into the ER. She has history of pancreatitis, biliary duct stenting at [facility] in 2018, subsequently with removal, per her without finding of malignancy, but with possible biliary leak? With gallbladder still in place, with history of biliary sludge. In ER she is found dehydrated, received bolus of IV fluid, nausea and pain medication. With noted leukocytosis, although afebrile, blood pressure somewhat soft but without hypotension, additionally on laboratory work-up with finding of moderate alkaline phosphatase elevation up to 225, minimal AST and ALT elevation up to 35 and 50 respectively, normal T bili, microscopic hematuria, underwent assessment by CT abdomen pelvis with findings of peripancreatic inflammation and edema concerning for pancreatitis, lobulated dilation of pancreatic duct suspected sequela of chronic pancreatitis, fluid distended gallbladder with wall thickening, peripheral enhancement, possibly reactive, suggestion of tiny gallbladder calculi or sludge. Diffuse thickening of the body of the stomach extending to the pylorus suspicious for gastritis. Bilateral renal cysts unchanged from prior. Fat-containing left parasagittal umbilical hernia. Fibroid uterus. Slightly lobulated left adnexal cystic lesion measuring 2.5 cm. Follow-up: Bladder ultrasound with fluid distended gallbladder with mild gallbladder wall thickening, gallbladder sludge, no pericholecystic fluid. Prominent common bile duct at 8 mm, consider MRCP, inc idental right renal cysts. No hydronephrosis. Normal pancreas. Lipase was 56. She does not drink alcohol which she says does on the weekends with her up to 3 drinks per week. Smokes half pack of cigarettes per day. Discussed with her and her concern for possibility of pancreatitis, although lipase is noted normal. Does have history of biliary duct instrumentation, stenting which had subsequently been taken out after follow-up with [facility] specialist. MRCP was considered and attempted in ER, however, due to presence of aneurysmal clips, MRI was not deemed safe until further information is available. We discussed that MRCP can be immediately obtained. Will try to request records from [facility] regards to her prior brain surgery for aneurysm. We discussed possibilities of pancreatitis, possibilities of gastritis, possibly secondary to alcohol intake. She denies NSAID use. MRCP could not be performed due to aneurysmal clip as per MRI department after receiving her records from [facility]. She had agreed for expectant management here in the hospital as opposed to transfer attempt to higher level facility. Her lipase was monitored and was without increase through the hospitalization. As discussed with her suspicion was highest for gastritis/duodenitis given significant wall thickening, and likely with surrounding inflammation due to this. She was treated with PPI twice daily, with improvement in symptoms, although still some persistent abdominal discomfort, however, has been tolerating oral intake well without any further vomiting, and overall feeling better. As per discussion with her could not exclude that pancreatitis was not in fact present in case of acute on chronic pancreatitis which may not result in lipase elevation. She verbalized understanding, and given she is improved and is tolerating oral diet at this time is discharged home to follow-up with gastroenterology in office with regards to consideration whether additional evaluation is necessary given we cannot perform MRCP, whether she may need stent placement again, as well as for consideration of evaluation by endoscopy for gastritis/duodenitis and symptoms of dyspepsia in a smoker. She understands that this evaluation may be necessary to exclude other more dangerous causes including malignancy. She also drinks alcohol currently, although states only on weekends, but is discouraged from doing so even occasionally as this may trigger both gastritis/duodenitis, and pancreatitis, and may risk other problems like gastric malignancy, etc. She is encouraged to quit smoking, please assist her with cessation with both. While in the hospital she underwent additional evaluation by HIDA scan given noted 2.4 mm thickening of gallbladder wall, 8 mm dilation of CBD, dilation of gallbladder seen on ultrasound. Pancreas did appear normal on the ultrasound. HIDA scan was unremarkable with good GB EF. She is continued on discharge on PPI, sucralfate is added additionally for symptom control and she is given a short course of Telferner as per her request after discussion of risks and benefits. She is given also a supply of potassium supplementation due to hypokalemia noted in the hospital. Please follow-up potassium and sodium levels. Due to hyponatremia which improved in the hospital (likely hypovolemic) HCTZ dose is decreased to 12.5 mg for now, and amlodipine is increased up to 10 mg to help control blood pressure. Of note incidentally she is seen to have hematuria on UA on presentation, however, says she is on her period. Discussed with her to bring this up again during her office visit. Please consider repeating UA. Please also follow-up incidentally noted left adnexal 2.5 cm cyst as discussed with her. Consider follow-up ultrasonography. Also incidentally noted umbilical hernia not containing any bowel. Physical Exam Const: COMMON NORMALS: no acute distress and patient oriented x3 OTHER: She is awake, alert, still having some abdominal discomfort, but is doing much better, has been eating. Feels strong enough to return home. Discussed her condition, as well as plan and additional follow-up after discharge with her over conference call during the visit. HENMT: COMMON NORMALS: oropharynx normal Neck/C-Spine: COMMON NORMALS: no JVD Resp: COMMON NORMALS: normal respiratory effort and clear to auscultation bilaterally AUSCULTATION: clear to auscultation bilaterally Cardio: COMMON NORMALS: no JVD, regular rhythm, S1 normal heart sound present, S2 normal heart sound present and No murmurs present (Cardio) RHYTHM: regular rhythm HEART SOUNDS: S1 normal heart sound present and S2 normal heart sound present GI: COMMON NORMALS: Normal to inspection, nondistended, normoactive bowel sounds present and Soft to palpation PALPATION: Yes Soft to palpation and Yes Tenderness to palpation present (GI) (Abdominal tenderness is been improving. Still some residual tenderness at the upper abdomen.) Extremity: COMMON NORMALS: no joint enlargement and no pedal edema Neuro: COMMON NORMALS: patient oriented x3 and moves all extremities Skin: COMMON NORMALS: no rashes or lesions noted GENERAL SKIN EXAM: no rashes or lesions noted Discharge Data Data Completed and Pending: Completed Studies During Hospitalization Category Date Time Status CT abdomen pelvis w con* [id number] Stat Cat Scan 12/19/19 11:28 Completed XR chest 1V terra ble [id number] Stat Exams 12/19/19 11:29 Completed NM hepatobiliary w phar* [id number] Rout ine Nuc Med 12/21/19 08:00 Completed US gall bladder 7 [id number] Urgent Ultrasound 12/19/19 12:34 Completed Pending at discharge Category Date Time Status Urine Culture Sta t Lab 12/19/19 12:24 Results MR MRCP [id number] Sta t MRI 12/21/19 14:31 Stop Req Labs from last 24 hours 12/21/19 12/21/19 04:45 04:45 WBC 11.0 H RBC 3.39 L Hgb 10.6 L Hct 33.0 L MCV 97.3 MCH 31.3 MCHC 32.1 RDW 17.0 H Plt Count 533 H MPV 10.9 H Neut % (Auto) 68.6 Lymph % (Auto) 19.6 [place] % (Auto) 7.1 Eos % (Auto) 2.5 Baso % (Auto) 0.8 Neut # (Auto) 7.56 Lymph # (Auto) 2.2 [place] # (Auto) 0.8 Eos # (Auto) 0.3 Baso # (Auto) 0.1 Nucleated RBC % (a uto) 0 Nucleated RBCs # 0.0 Sodium 150 H Potassium 2.9 L Chloride 114 H Carbon Dioxide 25 Anion Gap 13.9 BUN 1 L Creatinine 0.5 GFR Calculation 135.3 H Glucose 109 Calculated Osmolal ity 306 H Calcium 8.8 Total Bilirubin 0.5 AST 25 ALT 35 H Alkaline Phosphata se 198 H Total Protein 5.6 L Albumin 2.3 L Globulin 3.3 Lipase 39 Vitals: Last Vital Signs Temp 98.4 F 12/21/19 17:14 Pulse 91 12/21/19 17:14 Resp 18 12/21/19 17:14 BP 112/60 12/21/19 17:14 Pulse Ox 99 12/21/19 17:14 Discharge Plan Discharge Patient Disposition: Home Condition: Stable Prescriptions: New pantoprazole 40 mg tablet,delayed release (DR/EC) 40 mg PO BID 42 Days Qty: 84 RF: 0 sucralfate 1 gram tablet 1 gm PO BID 28 Days Qty: 56 RF: 0 Telferner 5-325 mg tablet 1 tab PO Q6H PRN (Reason: pain) Qty: 12 RF: 0 potassium chloride 20 mEq tablet,ER particles/crystals 20 meq PO DAILY Qty: 7 RF: 0 Continued fluoxetine 40 mg capsule 40 mg PO DAILY RF: 0 Tylenol Extra Strength 500 mg Tablet 1,000 mg PO PRN RF: 0 Euthyrox 25 mcg tablet 25 mcg PO DAILY RF: 0 Benadryl 25 mg Capsule 75 mg PO PRN RF: 0 trazodone 150 mg tablet 150 mg PO BEDTIME RF: 0 Discontinued metoprolol tartrate 50 mg tablet 50 mg PO BID RF: 0 alum-mag hydroxide-simeth [Maalox Maximum Strength] 400-400-40 mg/5 mL Suspension 20 ml PO PRN RF: 0 Discharge Orders: Discharge Order (Routine); Ordered 12/21/19 Ordered By: Arturo Lemus Referrals: [facility], gastroenterology [Other] (Soonest available appointment for follow-up on gastritis, duodenitis, gallbladder changes with dilation, wall thickening 2.4 mm, CBD dilation 8 mm, epigastric discomfort possible pancreatitis.) Rebekah Duffy NP [Referring] - 12/29/19 9:30 am (Gastritis, duodenitis, gallbladder changes with dilation, wall thickening 2.4 mm, CBD dilation 8 mm, normal HIDA, epigastric discomfort possible pancreatitis.) Discharge Diet: Advance as tolerated and GI Soft Discharge Activity: Increase activity as tolerated Patient Instructions: Sucralfate (By mouth), Potassium Chloride (By mouth), Pantoprazole (By mouth), Hydrocodone (By mouth), Uterine Fibroids (DC), Effects of Smoking, Alcohol, and Drugs on (GEN), Hypokalemia (DC), Umbilical Hernia (DC) Activity Restrictions/Additional Instructions: Please avoid any alcohol whatsoever as it may contribute to inflammation of the stomach, stomach ulcers, as well as may trigger episode of pancreatitis. Avoid any NSAIDs like ibuprofen, Aleve, etc. Due to suspicion of gastritis, duodenitis you are given prescription for acid julio medication Protonix, you may also add sucralfate to help with symptoms. Advance your diet slowly as tolerating. Please make sure to follow-up with gastroenterology to consider additional evaluation by endoscopy to exclude other more dangerous causes of stomach wall thickening. Also to assess as discussed for possibility of episode of pancreatitis. Please have your primary care doctor follow-up your levels of sodium and potassium to make sure they are staying normal. Please discuss with your primary care doctor repeating urinalysis due to small amount of blood incidentally noted there. Please discuss with your primary care doctor regarding follow-up of incidentally found 2.5 cm cyst adjacent to left ovary. Discussed arrangement for follow-up ultrasound. Please discuss with your primary care doctor incidentally noted small umbilical hernia which is not containing any bowel. Discharge Date/Time: 12/21/19 17:15 Discharge Attestations Time Spent in Discharge Care*: greater than 30 min Quality Metrics Clinical Quality Measures During this hospital stay, did patient experience: None Coding Level of Care Code Acute Coremaker for Chg Fwd Diagnoses Gastritis K29.70 Pancreatitis K85.90 Gallbladder dilatation K82.8 Hypokalemia E87.6 Hyponatremia E87.1 Transaminitis R74.01 Microscopic hematuria R31.29 Smoking addiction F17.200 Fibroid uterus D25.9 Adnexal cyst N94.9 Umbilical hernia K42.9
== END 2019-12-21 17:15 | disposition home or self-care (01) | DRG 391 ==
LOC: ER 18:15 → MEDSURG 20:21
PROVIDERS: Family Medicine; Admitting Provider Internal Medicine; Visit Provider Internal Medicine
DX: K29.00 Acute gastritis without bleeding (principal); K85.20 Alcohol induced acute pancreatitis without necrosis or infection; Q61.01 Congenital single renal cyst; E87.1 Hypo-osmolality and hyponatremia; F10.10 Alcohol abuse, uncomplicated; E86.0 Dehydration; R31.29 Other microscopic hematuria; F17.210 Nicotine dependence, cigarettes, uncomplicated; E87.6 Hypokalemia; D25.9 Leiomyoma of uterus, unspecified; K42.9 Umbilical hernia without obstruction or gangrene; K29.80 Duodenitis without bleeding; K82.8 Other specified diseases of gallbladder
CPT/HCPCS: 12345; 36415; 71045; 74177; 76705; 78227; 80053; 80306; 80500; 81001; 82009; 83605; 83690; 83735; 84478; 85025; 86677; 87086; 93005; 96372; 96375; 99284; A9537; C9113; J1644; J2270; J2405; J3480; J7030; J7799; Q9967

== ENCOUNTER 2019-12-28 13:57 | Emergency (ER) | payer SELFPAY ==
[2019-12-28 14:08] VITALS: BP 105/76; PULSE 116; RESP 20; TEMP 36.6; O2SAT 100; BMI 19.3
--- NOTE | 2019-12-28 14:41 | ED_ITS ---
HPI - Abdominal Pain General: Chief Complaint: Abdominal Pain Stated Complaint: Vomiting/ABD pain Time Seen by Provider: 12/28/19 14:35 History of Present Illness: HPI narrative: Patient relates that she is having a flareup of her pancreatitis. Flareup last week she drank some wine this week. Says she is hurting really bad now across her upper abdomen. Said she has been vomiting last couple 3 days. Denies fever chills diarrhea. MD elicited complaint: abdominal pain Pertinent past history: other (Pancreatitis) Onset (ago): week(s) Pain Consistency: constant Location: Diffuse Severity: severe Quality: stabbing Exacerbating factors: movement Relieving factors: nothing Associated Symptoms: Reports no associated symptoms, nausea and vomiting; Denies chills and fever(s) Related Data: Date of Last Menstrual Period: 12/19/19 Review of Systems Const: Denies: fever(s), chills or body aches Eyes: Denies: change in vision or blurry vision ENMT: Denies: throat pain or nasal congestion Card: Denies: chest pain or dyspnea on exertion Resp: Denies: dyspnea, productive cough or non-productive cough GI: Reports: abdominal pain, nausea and vomiting Musc: Denies: extremity pain Skin/Breast: Denies: rash Neuro: Denies: headache(s) Psych: Denies: anxiety or depression Tom/Lymph: Denies: easy bruising PFSH ED PFSH: Medical History (Updated 12/28/19 @ 16:17 by KOLBY Mena) Pancreatitis Surgical History History of biliary duct stent placement History of biliary stenting and removal. Possible biliary leak. History of History of right oophorectomy S/P clamping of cerebral aneurysm Family History Other No significant family history Social History Smoking and tobacco status: current every day smoker cigarettes Packs smoked per day: 0.5 Alcohol intake: current Alcohol intake frequency: few times a week Lives independently: Yes Household members: spouse Marital status: Current occupational status: unemployed Female Reproductive History: Date of last menstrual period: 12/19/19 Physical Exam Const: COMMON NORMALS: no acute distress, average body habitus and patient oriented x3 HENMT: COMMON NORMALS: normocephalic HEAD & SCALP: normal to inspection and normocephalic FACE & SINUS: normal facial exam Eye: COMMON NORMALS: conjunctivae normal GENERAL EYE: appearance normal, both eyes and all related structures CONJUNCTIVA: Yes conjunctivae normal Neck/C-Spine: COMMON NORMALS: no JVD Chest: COMMONS NORMALS: normal inspection of the chest Resp: COMMON NORMALS: normal respiratory effort and clear to auscultation bilaterally AUSCULTATION: clear to auscultation bilaterally Cardio: COMMON NORMALS: no JVD, regular rate and regular rhythm RATE: regul ar rate RHYTHM: regular rhythm GI: COMMON NORMALS: Normal to inspection, nondistended, normoactive bowel sounds present AUSCULTATION: Yes normoactive bowel sounds PALPATION: Yes Tenderness to palpation present (GI) (Diffuse,there is no firmness) Extremity: COMMON NORMALS: normal to inspection and full ROM Neuro: COMMON NORMALS: patient oriented x3 Course Vital Signs: Vital signs: Vital Signs Temperature 97.9 F 12/28/19 14:08 Pulse Rate 83 12/28/19 17:28 Respiratory Rate 20 H 12/28/19 17:28 Blood Pressure 110/75 12/28/19 17:28 Pulse Oximetry 95 12/28/19 17:28 MDM - Abdominal Pain MDM Narrative: Medical decision making narrative: Discussed case with Dr. Yanez and Dr. Payne. Patient be discharged home follow-up primary care provider. Patient vies drink plenty of fluids take pain medication as prescribed and stay away from alcohol Lab Data: Labs: Lab Results 12/28/19 12/28/19 12/28/19 Range/Units 15:21 15:21 15:21 WBC 17.2 H (4.0-10.0) 10^3/ uL RBC 3.99 L (4.1-5.3) 10^6/u L Hgb 12.6 (11.5-15.3) g/dL Hct 40.0 (37.0-47.0) % MCV 100.3 H (81-99) fL MCH 31.6 (28.0-34.0) pg MCHC 31.5 (30.0-36.0) g/dL RDW 17.4 H (12.1-15.1) % Plt Count 644 H (130-400) 10^3/c mm MPV 10.7 H (7.4-10.4) fL Neut % (Auto) 86.2 % Lymph % (Auto) 7.8 % [place] % (Auto) 4.8 % Eos % (Auto) 0.1 % Baso % (Auto) 0.5 % Neut # (Auto) 14.82 H (1.8-7.7) 10^3/u L Lymph # (Auto) 1.3 (0.8-4.8) 10^3/u L [place] # (Auto) 0.8 (0.2-0.9) 10^3/u L Eos # (Auto) 0.0 (0.0-0.8) 10^3/u L Baso # (Auto) 0.1 (0.0-0.1) 10^3/u L Nucleated RBC % (a uto) 0 % Nucleated RBCs # 0.0 /100WBC Sodium 136 (136-145) mmol/L Potassium 3.6 (3.5-5.1) mmol/L Chloride 101 (98-107) mmol/L Carbon Dioxide 17 L (22-29) mmol/L Anion Gap 21.6 H (5-19) BUN 7 (6-20) mg/dL Creatinine 0.5 (0.5-0.9) mg/dL GFR Calculation 135.3 H (90-130) mL/min Glucose 112 (65-115) mg/dL Calculated Osmolal ity 281 L (285-295) mOsm/k g Calcium 9.0 (8.5-10.5) mg/dL Total Bilirubin 0.7 (0.15-1.2) mg/dL AST 44 H (0-32) U/L ALT 24 (0-33) U/L Alkaline Phosphata se 213 H (35-105) IU/L Total Protein 6.8 (6.6-8.7) g/dL Albumin 3.0 L (3.5-5.2) g/dL Globulin 3.8 (1.3-4.6) g/dL Lipase 389 H (13-60) U/L HCG, Qual Negative (Negative) Urine Color (Yellow) Urine Appearance (CLEAR) Urine pH (5-7) Ur Specific Gravit y (1.005-1.030) Urine Protein (Negative) Urine Glucose (UA) (Normal) Urine Ketones (Negative) Urine Blood (Negative) Urine Nitrate (Negative) Urine Bilirubin (Negative) Urine Urobilinogen (Negative) mg/dL Ur Leukocyte Gaata ase (Negative) Urine RBC (0-2) /hpf Urine WBC (0-5) /hpf Ur Squamous Epith Cells (0-5) /hpf Amorphous Sediment Urine Bacteria (NONE) /hpf Urine Opiates Scre en (Negative) ng/mL Ur Barbiturates Sc reen (Negative) ng/mL Ur Phencyclidine S crn (Negative) ng/mL Ur Amphetamines Sc reen (Negative) ng/mL U Benzodiazepines Scrn (Negative) ng/mL Urine Cocaine Scre en (Negative) ng/mL U Marijuana (THC) Screen (Negative) ng/mL 12/28/19 12/28/19 Range/Units 16:00 16:00 WBC (4.0-10.0) 10^3/ uL RBC (4.1-5.3) 10^6/u L Hgb (11.5-15.3) g/dL Hct (37.0-47.0) % MCV (81-99) fL MCH (28.0-34.0) pg MCHC (30.0-36.0) g/dL RDW (12.1-15.1) % Plt Count (130-400) 10^3/c mm MPV (7.4-10.4) fL Neut % (Auto) % Lymph % (Auto) % [place] % (Auto) % Eos % (Auto) % Baso % (Auto) % Neut # (Auto) (1.8-7.7) 10^3/u L Lymph # (Auto) (0.8-4.8) 10^3/u L [place] # (Auto) (0.2-0.9) 10^3/u L Eos # (Auto) (0.0-0.8) 10^3/u L Baso # (Auto) (0.0-0.1) 10^3/u L Nucleated RBC % (a uto) % Nucleated RBCs # /100WBC Sodium (136-145) mmol/L Potassium (3.5-5.1) mmol/L Chloride (98-107) mmol/L Carbon Dioxide (22-29) mmol/L Anion Gap (5-19) BUN (6-20) mg/dL Creatinine (0.5-0.9) mg/dL GFR Calculation (90-130) mL/min Glucose (65-115) mg/dL Calculated Osmolal ity (285-295) mOsm/k g Calcium (8.5-10.5) mg/dL Total Bilirubin (0.15-1.2) mg/dL AST (0-32) U/L ALT (0-33) U/L Alkaline Phosphata se (35-105) IU/L Total Protein (6.6-8.7) g/dL Albumin (3.5-5.2) g/dL Globulin (1.3-4.6) g/dL Lipase (13-60) U/L HCG, Qual (Negative) Urine Color Yellow (Yellow) Urine Appearance Clear (CLEAR) Urine pH 6.5 (5-7) Ur Specific Gravit y 1.005 (1.005-1.030) Urine Protein Neg (Negative) Urine Glucose (UA) Norm (Normal) Urine Ketones 1+ H (Negative) Urine Blood Trace H (Negative) Urine Nitrate Negative (Negative) Urine Bilirubin Neg (Negative) Urine Urobilinogen Norm (Negative) mg/dL Ur Leukocyte Agata ase Negative (Negative) Urine RBC Rare (0-2) /hpf Urine WBC Rare (0-5) /hpf Ur Squamous Epith Cells 10-15 H (0-5) /hpf Amorphous Sediment Not Reportable Urine Bacteria 1+ H (NONE) /hpf Urine Opiates Scre en Positive H (Negative) ng/mL Ur Barbiturates Sc reen Negative (Negative) ng/mL Ur Phencyclidine S crn Negative (Negative) ng/mL Ur Amphetamines Sc reen Negative (Negative) ng/mL U Benzodiazepines Scrn Positive H (Negative) ng/mL Urine Cocaine Scre en Negative (Negative) ng/mL U Marijuana (THC) Screen Negative (Negative) ng/mL Discharge Plan Discharge Patient Disposition: Home Clinical Impression: Pancreatitis Qualifiers: Chronicity: chronic Pancreatitis type: alcohol induced Qualified Code(s): K86.0 - Alcohol-induced chronic pancreatitis Condition: Stable Prescriptions: New Zofran 4 mg tablet 4 mg PO TID 3 Days Qty: 9 RF: 0 hydrocodone-acetaminophen 5-325 mg tablet 1 tab PO Q8H PRN (Reason: pain) Qty: 20 RF: 0 No Action fluoxetine 40 mg capsule 40 mg PO DAILY RF: 0 Tylenol Extra Strength 500 mg Tablet 1,000 mg PO PRN RF: 0 Euthyrox 25 mcg tablet 25 mcg PO DAILY RF: 0 Benadryl 25 mg Capsule 75 mg PO PRN RF: 0 trazodone 150 mg tablet 150 mg PO BEDTIME RF: 0 pantoprazole 40 mg tablet,delayed release (DR/EC) 40 mg PO BID 42 Days Qty: 84 RF: 0 sucralfate 1 gram tablet 1 gm PO BID 28 Days Qty: 56 RF: 0 [place] 5-325 mg tablet 1 tab PO Q6H PRN (Reason: pain) Qty: 12 RF: 0 potassium chloride 20 mEq tablet,ER particles/crystals 20 meq PO DAILY Qty: 7 RF: 0 Discharge Orders: Discharge Order (Routine); Ordered 12/28/19 Ordered By: Jimbo Jose Discharge Diet: Advance as tolerated Discharge Activity: Increase activity as tolerated Patient Instructions: Pancreatitis (ED) Activity Restrictions/Additional Instructions: Follow-up with medical provider as directed. Take medications as prescribed. Return to the ER or your medical provider if condition worsens. Please read and understand discharge instructions. If any questions ask please. Do not drink any alcohol Discharge Date/Time: 12/28/19 17:30 Coding Level of Care Code ED Electric Power Machine Operator for Aditi Fweliana Exam Comprehensive
[2019-12-28] MEDS: ondansetron 2 mg/ML SDV 2 mL 4 MG IVP ×2 (14:43→16:32)
[2019-12-28] MEDS: sodium chloride 0.9% 1,000 ML 999 ML IV ×2 (14:44→15:40)
[2019-12-28 14:51] VITALS: RESP 20
[2019-12-28] MEDS: morphine 4 mg/mL SDV 1 mL IVP ×2 (14:51→16:32)
[2019-12-28 15:27] LABS: Basophils # 0.1 10^3/uL (0.0-0.1); Basophils % 0.5 %; Eosinophils % 0.1 %; Hemoglobin 12.6 g/dL (11.5-15.3); Lymphocytes # 1.3 10^3/uL (0.8-4.8); Lymphocytes % 7.8 %; Mean Corpuscular HGB Conc 31.5 g/dL (30.0-36.0); Mean Corpuscular Hemoglobin 31.6 pg (28.0-34.0); Mean Corpuscular Volume 100.3 fL (81-99); Mean Platelet Volume 10.7 fL (7.4-10.4); Monocytes # 0.8 10^3/uL (0.2-0.9); Monocytes % 4.8 %; Neutrophils # 14.82 10^3/uL (1.8-7.7); Neutrophils % 86.2 %; Nucleated Red Blood Cells % 0 %; Platelet Count 644 10^3/cmm (130-400); Red Blood Count 3.99 10^6/uL (4.1-5.3); Red Cell Distribution Width 17.4 % (12.1-15.1); White Blood Count 17.2 10^3/uL (4.0-10.0)
[2019-12-28 15:48] LABS: HCG, Serum Qual Negative (Negative)
[2019-12-28 15:53] LABS: Alanine Aminotransferase 24 U/L (0-33); Alkaline Phosphatase 213 IU/L (35-105); Anion Gap 21.6 (5-19); Aspartate Amino Transferase 44 U/L (0-32); Blood Urea Nitrogen 7 mg/dL (6-20); Carbon Dioxide 17 mmol/L (22-29); Chloride 101 mmol/L (98-107); Creatinine Clr Calc Pharmacy 137.1599; Globulin 3.8 g/dL (1.3-4.6); Glomerular Filtration Rate 135.3 mL/min (90-130); Glucose 112 mg/dL (65-115); Osmolality Calculated 281 mOsm/kg (285-295); Potassium 3.6 mmol/L (3.5-5.1); Sodium 136 mmol/L (136-145); Total Bilirubin 0.7 mg/dL (0.15-1.2); Total Protein 6.8 g/dL (6.6-8.7)
[2019-12-28 16:01] LABS: Lipase 389 U/L (13-60)
[2019-12-28 16:31] LABS: Amphetamines Screen Urine Negative (Negative); Barbiturates Screen Urine Negative (Negative); Benzodiazepines Screen Urine Positive (Negative); Cocaine Screen Urine Negative (Negative); Opiate Screen Urine Positive (Negative); PCP Screen Urine Negative (Negative); Specific Gravity, Urine 1.005 (1.005-1.030); THC Screen Urine Negative (Negative); Urine Appearance Clear (CLEAR); Urine Color Yellow (Yellow); pH Urine 6.5 (5-7)
[2019-12-28 16:32] VITALS: RESP 20
[2019-12-28 16:32] LABS: Add Urine Microscopic? YES; Bilirubin Urine Neg (Negative); Blood Urine Trace (Negative); Glucose Urine UA Norm (Normal); Ketones Urine 1+ (Negative); Leukocyte Esterase Urine Negative (Negative); Nitrate Urine Negative (Negative); Protein Urine Neg (Negative); Urobilinogen Urine Norm (Negative)
[2019-12-28 16:34] LABS: Add Urine Culture? No; Bacteria Urine 1+ /hpf; RBC Urine RARE /hpf (0-2); WBC Urine RARE /hpf (0-5)
[2019-12-28 17:28] VITALS: BP 110/75; PULSE 83; RESP 20; O2SAT 95
== END 2019-12-28 17:30 | disposition home or self-care (01) ==
PROVIDERS: Emergency Medicine; Emergency Provider Nurse Practitioner Family
DX: K86.0 Alcohol-induced chronic pancreatitis (principal); F17.210 Nicotine dependence, cigarettes, uncomplicated
CPT/HCPCS: 12345; 80053; 80306; 81001; 83690; 84703; 85025; 96361; 96374; 96375; 96376; 99283; 99284; J2270; J2405; J7030

== ENCOUNTER 2020-01-18 12:08 | Emergency (ER) | payer SELFPAY ==
[2020-01-18] VITALS (14 sets, daily range): BP systolic 99–127; BP diastolic 68–93; PULSE 108–141; RESP 16–28; TEMP 36.7–36.9; O2SAT 95–100; BMI 19.3
--- NOTE | 2020-01-18 12:21 | ED_ITS ---
Documented by User: YVETTE Kincaid 01/18/20 18:03 HPI - Nausea/Vomiting/Diarrhea General: Chief complaint: Nausea/Vomiting/Diarrhea Stated complaint: N/V, ABDOMINAL PAIN Time Seen by Provider: 01/18/20 12:11 History of Present Illness: HPI Narrative: Patient is a 44-year-old female comes to the ED with abdominal pain, nausea and vomiting. Patient has a past medical history pancreatitis. She was seen here in the ED for same complaint and diagnosed with Pancreatitis on December 27 and December 18. Patient was admitted on December 18 ED encounter. Patient says she is dealing with this abdominal pain for several months now. She says sometimes it becomes more acute and severe. Over the past 3 days the pain has progressed and today has become more severe. She rates pain 9 out of 10 and she says it is located on the right and left upper quadrants of the abdomen and radiates to back. She reports having nausea and vomiting. She has trouble keeping any p.o. food or fluids down and says her pain gets worse after she eats. Denies fever, chills, chest pain, shortness of breath, diarrhea, constipation, blood in stool, dysuria or hematuria. Associated nausea: Yes Associated symtoms: Reports nausea; Denies change in vision, chest pain, dysuria, fatigue, headache(s) or palpitations Review of Systems Const: Reports: change in appetite (Decreased); Denies: fever(s), chills or fatigue Eyes: Denies: change in vision or eye discomfort ENMT: Denies: throat pain, odynophagia, nasal discharge or nasal congestion Card: Denies: chest pain, palpitations, edema, swelling of feet/ankles, dyspnea on exertion or orthopnea Resp: Denies: dyspnea, productive cough or non-productive cough GI: Reports: abdominal pain (Right and left upper quadrant of abdomen.), nausea and vomiting; Denies: diarrhea, constipation or hematochezia : Denies: flank pain, dysuria or hematuria Musc: Denies: neck pain, back pain or extremity swelling Skin/Breast: Denies: rash or new lesions Neuro: Denies: headache(s), numbness in extremities or weakness in extremities [facility] ED PFSH: Medical History Pancreatitis Surgical History History of biliary duct stent placement History of biliary stenting and removal. Possible biliary leak. History of History of right oophorectomy S/P clamping of cerebral aneurysm Family History Other No significant family history Social History Smoking and tobacco status: current every day smoker cigarettes Packs smoked per day: 0.5 Alcohol intake: current Alcohol intake frequency: few times a week Lives independently: Yes Household members: spouse Marital status: Current occupational status: unemployed Female Reproductive History: Date of last menstrual period: 12/19/19 Physical Exam Const: COMMON NORMALS: patient oriented x3 and alert GENERAL APPEARANCE: cooperative and in distress (Patient appears in pain and is constantly moving while on exam bed.); not comfortable NUTRITIONAL APPEARANCE: thin HENMT: COMMON NORMALS: normocephalic HEAD & SCALP: normocephalic MOUTH: moist mucous membranes abnormal Details: parched THROAT: posterior oropharynx normal and uvula midline Eye: COMMON NORMALS: Equal, round and reactive pupils present PUPIL: Yes Equal, round and reactive pupils present Neck/C-Spine: COMMON NORMALS: supple GENERAL: Yes normal visual inspection Resp: COMMON NORMALS: normal respiratory effort, No retractions, No use of accessory muscles and clear to auscultation bilaterally AUSCULTATION: clear to auscultation bilaterally Cardio: COMMON NORMALS: regular rhythm, S1 normal heart sound present, S2 normal heart sound present, No gallops present (Cardio), No clicks present (C ardio), No murmurs present (Cardio) and Peripheral pulses 2+ throughout RATE: tachycardic RHYTHM: regular rhythm HEART SOUNDS: S1 normal heart sound present and S2 normal heart sound present PERIPHERAL PULSES: Peripheral pulses 2+ throughout GI: COMMON NORMALS: Normal to inspection, nondistended, normoactive bowel sounds present, Soft to palpation and no masses PALPATION: Yes Soft to palpation and Yes Tenderness to palpation present (GI) (Moderate to severe tenderness upon deep and light palpation of upper abdomen.) Details: LUQ and RUQ : BLADDER/KIDNEY EXAM: Yes CVA tenderness on the right Back/Pelvis: GENERAL BACK: Yes CVA tenderness Extremity: COMMON NORMALS: normal to inspection and no pedal edema Neuro: COMMON NORMALS: patient oriented x3 and moves all extremities SENSORIUM/ORIENTATION: Yes alert Skin: GENERAL SKIN EXAM: dry skin Course ED course: After CT report came back I talked with Dr. Serrano about labs and CT report findings. I expressed my thoughts the patient needs to be admitted. Dr. Serrano will be contacting hospitalist patient to be admitted. 1500 Vital Signs: Vital signs: Vital Signs Temperature 98.0 F 01/18/20 12:09 Pulse Rate 108 H 01/18/20 17:31 Respiratory Rate 22 H 01/18/20 17:31 Blood Pressure 127/82 01/18/20 17:31 Pulse Oximetry 97 01/18/20 17:31 MDM - Nausea/Vomiting/Diarrhea MDM Narrative: Medical decision making narrative: Patient is a 44-year-old female comes to the ED with abdominal pain, nausea and vomiting. Patient has a history of pancreatitis was recently admitted to the hospital on December 18 for same complaint. White blood cell count 15, hemoglobin 9.5. Lipase [address] abdomen showed progression of pancreatic inflammation. With new areas of concern for pancreatic necrosis. Talk with Dr. Serrano about patient case and he will be speaking with hospitalist to have patient admitted. Lab Data: Attestation: I reviewed the patient's lab results. Labs: Lab Results 01/18/20 01/18/20 01/18/20 Range/Units 13:02 13:02 13:02 WBC 15.0 H (4.0-10.0) 10^3/ uL RBC 3.08 L (4.1-5.3) 10^6/u L Hgb 9.5 L (11.5-15.3) g/dL Hct 28.1 L (37.0-47.0) % MCV 91.2 (81-99) fL MCH 30.8 (28.0-34.0) pg MCHC 33.8 (30.0-36.0) g/dL RDW 17.5 H (12.1-15.1) % Plt Count 677 H (130-400) 10^3/c mm MPV 10.7 H (7.4-10.4) fL Neut % (Auto) 85.7 % Lymph % (Auto) 6.5 % Wharton % (Auto) 6.1 % Eos % (Auto) 0.1 % Baso % (Auto) 0.1 % Neut # (Auto) 12.84 H (1.8-7.7) 10^3/u L Lymph # (Auto) 1.0 (0.8-4.8) 10^3/u L Wharton # (Auto) 0.9 (0.2-0.9) 10^3/u L Eos # (Auto) 0.0 (0.0-0.8) 10^3/u L Baso # (Auto) 0.0 (0.0-0.1) 10^3/u L Nucleated RBC % (a uto) 0 % Nucleated RBCs # 0.0 /100WBC Specimen Type Sample Site ABG pH (7.35-7.45) ABG pCO2 (35-45) mmHg ABG pO2 (80.0-100.0) mmH g ABG HCO3 (22-26) mmol/L ABG Base Excess (-2.0-2.0) mmol/ L João Test Hematocrit (37-47) % O2 Delivery Device FiO2 % [employer] ID Sodium 139 (136-145) mmol/L Potassium 3.1 L (3.5-5.1) mmol/L Chloride 97 L (98-107) mmol/L Carbon Dioxide 15 L (22-29) mmol/L Anion Gap 30.1 H (5-19) BUN 5 L (6-20) mg/dL Creatinine 0.6 (0.5-0.9) mg/dL GFR Calculation 109.6 (90-130) mL/min Glucose 84 (65-115) mg/dL Calculated Osmolal ity 284 L (285-295) mOsm/k g Lactic Acid 2.7 H (0.5-2.2) mmol/L Lactic Acid (Sepsi s) (0.5-2.2) mmol/L Calcium 8.4 L (8.5-10.5) mg/dL Total Bilirubin 1.4 H (0.15-1.2) mg/dL AST 70 H (0-32) U/L ALT 67 H (0-33) U/L Alkaline Phosphata se 353 H (35-105) IU/L Troponin T Gen 5 n g/L (0-10) ng/L Total Protein 7.3 (6.6-8.7) g/dL Albumin 2.2 L (3.5-5.2) g/dL Globulin 5.1 H (1.3-4.6) g/dL Lipase 131 H (13-60) U/L HCG, Qual (Negative) Urine Color (Yellow) Urine Appearance (CLEAR) Urine pH (5-7) Ur Specific Gravit y (1.005-1.030) Urine Protein (Negative) Urine Glucose (UA) (Normal) Urine Ketones (Negative) Urine Blood (Negative) Urine Nitrate (Negative) Urine Bilirubin (Negative) Urine Urobilinogen (Negative) mg/dL Ur Leukocyte Agata ase (Negative) Urine RBC (0-2) /hpf Urine WBC (0-5) /hpf Ur Squamous Epith Cells (0-5) /hpf Amorphous Sediment Urine Bacteria (NONE) /hpf Urine Mucus /hpf 01/18/20 01/18/20 01/18/20 Range/Units 13:02 13:02 14:12 WBC (4.0-10.0) 10^3/ uL RBC (4.1-5.3) 10^6/u L Hgb (11.5-15.3) g/dL Hct (37.0-47.0) % MCV (81-99) fL MCH (28.0-34.0) pg MCHC (30.0-36.0) g/dL RDW (12.1-15.1) % Plt Count (130-400) 10^3/c mm MPV (7.4-10.4) fL Neut % (Auto) % Lymph % (Auto) % Wharton % (Auto) % Eos % (Auto) % Baso % (Auto) % Neut # (Auto) (1.8-7.7) 10^3/u L Lymph # (Auto) (0.8-4.8) 10^3/u L Wharton # (Auto) (0.2-0.9) 10^3/u L Eos # (Auto) (0.0-0.8) 10^3/u L Baso # (Auto) (0.0-0.1) 10^3/u L Nucleated RBC % (a uto) % Nucleated RBCs # /100WBC Specimen Type Sample Site ABG pH (7.35-7.45) ABG pCO2 (35-45) mmHg ABG pO2 (80.0-100.0) mmH g ABG HCO3 (22-26) mmol/L ABG Base Excess (-2.0-2.0) mmol/ L João Test Hematocrit (37-47) % O2 Delivery Device FiO2 % [employer] ID Sodium (136-145) mmol/L Potassium (3.5-5.1) mmol/L Chloride (98-107) mmol/L Carbon Dioxide (22-29) mmol/L Anion Gap (5-19) BUN (6-20) mg/dL Creatinine (0.5-0.9) mg/dL GFR Calculation (90-130) mL/min Glucose (65-115) mg/dL Calculated Osmolal ity (285-295) mOsm/k g Lactic Acid (0.5-2.2) mmol/L Lactic Acid (Sepsi s) (0.5-2.2) mmol/L Calcium (8.5-10.5) mg/dL Total Bilirubin (0.15-1.2) mg/dL AST (0-32) U/L ALT (0-33) U/L Alkaline Phosphata se (35-105) IU/L Troponin T Gen 5 n g/L 6 (0-10) ng/L Total Protein (6.6-8.7) g/dL Albumin (3.5-5.2) g/dL Globulin (1.3-4.6) g/dL Lipase (13-60) U/L HCG, Qual Negative (Negative) Urine Color Yellow (Yellow) Urine Appearance Clear (CLEAR) Urine pH 6 (5-7) Ur Specific Gravit y 1.010 (1.005-1.030) Urine Protein Neg (Negative) Urine Glucose (UA) Norm (Normal) Urine Ketones 1+ H (Negative) Urine Blood 2+ H (Negative) Urine Nitrate Negative (Negative) Urine Bilirubin Neg (Negative) Urine Urobilinogen Neg (Negative) mg/dL Ur Leukocyte Agata ase Trace H (Negative) Urine RBC 0-4 H (0-2) /hpf Urine WBC 5-10 H (0-5) /hpf Ur Squamous Epith Cells 10-15 H (0-5) /hpf Amorphous Sediment Not Reportable Urine Bacteria 2+ H (NONE) /hpf Urine Mucus Trace /hpf 01/18/20 01/18/20 Range/Units 15:09 16:32 WBC (4.0-10.0) 10^3/ uL RBC (4.1-5.3) 10^6/u L Hgb (11.5-15.3) g/dL Hct (37.0-47.0) % MCV (81-99) fL MCH (28.0-34.0) pg MCHC (30.0-36.0) g/dL RDW (12.1-15.1) % Plt Count (130-400) 10^3/c mm MPV (7.4-10.4) fL Neut % (Auto) % Lymph % (Auto) % Wharton % (Auto) % Eos % (Auto) % Baso % (Auto) % Neut # (Auto) (1.8-7.7) 10^3/u L Lymph # (Auto) (0.8-4.8) 10^3/u L Wharton # (Auto) (0.2-0.9) 10^3/u L Eos # (Auto) (0.0-0.8) 10^3/u L Baso # (Auto) (0.0-0.1) 10^3/u L Nucleated RBC % (a uto) % Nucleated RBCs # /100WBC Specimen Type Arterial Sample Site Brachial, right ABG pH 7.39 (7.35-7.45) ABG pCO2 27.9 L (35-45) mmHg ABG pO2 96.8 (80.0-100.0) mmH g ABG HCO3 17.0 L (22-26) mmol/L ABG Base Excess -6.9 L (-2.0-2.0) mmol/ L João Test N/a Hematocrit 30.1 L (37-47) % O2 Delivery Device Room air FiO2 21.0 % [employer] ID Ed Sodium (136-145) mmol/L Potassium (3.5-5.1) mmol/L Chloride (98-107) mmol/L Carbon Dioxide (22-29) mmol/L Anion Gap (5-19) BUN (6-20) mg/dL Creatinine (0.5-0.9) mg/dL GFR Calculation (90-130) mL/min Glucose (65-115) mg/dL Calculated Osmolal ity (285-295) mOsm/k g Lactic Acid (0.5-2.2) mmol/L Lactic Acid (Sepsi s) 1.0 (0.5-2.2) mmol/L Calcium (8.5-10.5) mg/dL Total Bilirubin (0.15-1.2) mg/dL AST (0-32) U/L ALT (0-33) U/L Alkaline Phosphata se (35-105) IU/L Troponin T Gen 5 n g/L (0-10) ng/L Total Protein (6.6-8.7) g/dL Albumin (3.5-5.2) g/dL Globulin (1.3-4.6) g/dL Lipase (13-60) U/L HCG, Qual (Negative) Urine Color (Yellow) Urine Appearance (CLEAR) Urine pH (5-7) Ur Specific Gravit y (1.005-1.030) Urine Protein (Negative) Urine Glucose (UA) (Normal) Urine Ketones (Negative) Urine Blood (Negative) Urine Nitrate (Negative) Urine Bilirubin (Negative) Urine Urobilinogen (Negative) mg/dL Ur Leukocyte Agata ase (Negative) Urine RBC (0-2) /hpf Urine WBC (0-5) /hpf Ur Squamous Epith Cells (0-5) /hpf Amorphous Sediment Urine Bacteria (NONE) /hpf Urine Mucus /hpf Imaging Data^: CT Abd/Pel: Attestation: I personally reviewed and interpreted this imaging study as follows: Radiologist's impression: [place] [address] CT Scan Report Signed Patient: Arvin Whiting Unit #: [id number] : 1975 Age/Sex: 44 / F ADM Date: 01/18/20 Loc: ER Room/Bed: Attending Dr: Ordering Provider/Ordering MD: Mike Gilman Date of Service: 01/18/20 Procedure(s): CT abdomen pelvis w con* [id number] Accession Number(s): [id number] Report Number: [id number] WS: [id number] CT abdomen pelvis w con* [id number] REASON FOR EXAM: abdom pain, n/v IV CONTRAST ADMINISTERED: 75 mL of Omnipaque 300 TOTAL EXAM DLP: 272.[address] scans at [facility] use at least one of these dose optimization techniques: automated exposure control; mA and/or kV adjustment per patient size (includes targeted exams where dose is matched to clinical indication); or iterative reconstruction. FINDINGS: Comparison CT scan 12/19/2019. Previous CT scan demonstrated interstitial edematous pancreatitis. Compared to the previous examination the inflammatory Peripancreatic inflammatory process has increased significantly extending media lly, anteriorly, and superiorly. There are multiple defined and ill-defined areas of low-attenuation and heterogeneous contrast enhancement. There is thickening of Gerota's fascia on the left. The pancreas still appears to enhance over all, but contains some ill-defined areas of low attenuation near the junction of the pancreatic head and body. Inflammatory changes in the pancreas have progressed compared to the previous exam. There are multiple large varices present especially within the gastric wall. The splenic vein is not visualized. These findings were present on the previous examination but not reported. The gallbladder remains moderately distended with enhancing wall. There is debris/sludge in the dependent portion of the gallbladder. Fatty infiltration of the liver again noted. No significant dilatation of the bile ducts. No free fluid is identified. Renal cysts and left ovarian cystic lesion again identified. CT/CT abdomen pelvis w con* [id number] IMPRESSION: Progression of pancreatic and peripancreatic inflammation as above. Overall pancreas enhances normally however there are some areas of concern for pancreatic necrosis. There are areas of walled off necrosis and acute walled off peripancreatic fluid collections in the peripancreatic inflammatory process. 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 Significant gallbladder distention which does not appear to change significantly. Dictated By: Salvador Henderson Jr, MD Signed By: Salvador Henderson Jr, MD Signed Date/Time: 01/18/20 1434 DD/ 1351 EKG Data^: EKG 1: Attestation: I personally reviewed and interpreted this EKG as follows: EKG interpretation date: 01/18/20 Interpretation: Sinus tachycardia, 117 bpm, no ST elevation or depression seen. T wave abnormality leads V3-6. Discharge Plan Discharge Patient Disposition: Admitted As Inpatient Clinical Impression: Acute pancreatitis Qualifiers: Pancreatitis type: unspecified pancreatitis type Condition: Stable Coding Level of Care Code ED Vehicle Window Tinter for Chg Fwd Exam Comprehensive Documented by User: Olman Serrano MD 01/18/20 18:07 HPI - Nausea/Vomiting/Diarrhea General: Chief complaint: Nausea/Vomiting/Diarrhea Stated complaint: N/V, ABDOMINAL PAIN Time Seen by Provider: 01/18/20 12:11 PFSH ED PFSH: Medical History Pancreatitis Surgical History History of biliary duct stent placement History of biliary stenting and removal. Possible biliary leak. History of History of right oophorectomy S/P clamping of cerebral aneurysm Family History Other No significant family history Social History Smoking and tobacco status: current every day smoker cigarettes Packs smoked per day: 0.5 Alcohol intake: current Alcohol intake frequency: few times a week Lives independently: Yes Household members: spouse Marital status: Current occupational status: unemployed Course Vital Signs: Vital signs: Vital Signs Temperature 98.0 F 01/18/20 12:09 Pulse Rate 108 H 01/18/20 17:31 Respiratory Rate 22 H 01/18/20 17:31 Blood Pressure 127/82 01/18/20 17:31 Pulse Oximetry 97 01/18/20 17:31 MDM - Nausea/Vomiting/Diarrhea MDM Narrative: Medical decision making narrative: Patient presents with pancreatitis with possible necrosis. I spoke to hospitalist who is seen the patient will admit to the ICU. I also spoke to Dr. Tapia of surgery who is consulted. I did examine patient and she is in pain. Her vital signs here have been stable. Lab Data: Labs: Lab Results 01/18/20 01/18/20 01/18/20 Range/Units 13:02 13:02 13:02 WBC 15.0 H (4.0-10.0) 10^3/ uL RBC 3.08 L (4.1-5.3) 10^6/u L Hgb 9.5 L (11.5-15.3) g/dL Hct 28.1 L (37.0-47.0) % MCV 91.2 (81-99) fL MCH 30.8 (28.0-34.0) pg MCHC 33.8 (30.0-36.0) g/dL RDW 17.5 H (12.1-15.1) % Plt Count 677 H (130-400) 10^3/c mm MPV 10.7 H (7.4-10.4) fL Neut % (Auto) 85.7 % Lymph % (Auto) 6.5 % Wharton % (Auto) 6.1 % Eos % (Auto) 0.1 % Baso % (Auto) 0.1 % Neut # (Auto) 12.84 H (1.8-7.7) 10^3/u L Lymph # (Auto) 1.0 (0.8-4.8) 10^3/u L Wharton # (Auto) 0.9 (0.2-0.9) 10^3/u L Eos # (Auto) 0.0 (0.0-0.8) 10^3/u L Baso # (Auto) 0.0 (0.0-0.1) 10^3/u L Nucleated RBC % (a uto) 0 % Nucleated RBCs # 0.0 /100WBC Specimen Type Sample Site ABG pH (7.35-7.45) ABG pCO2 (35-45) mmHg ABG pO2 (80.0-100.0) mmH g ABG HCO3 (22-26) mmol/L ABG Base Excess (-2.0-2.0) mmol/ L João Test Hematocrit (37-47) % O2 Delivery Device FiO2 % [employer] Manager ID Sodium 139 (136-145) mmol/L Potassium 3.1 L (3.5-5.1) mmol/L Chloride 97 L (98-107) mmol/L Carbon Dioxide 15 L (22-29) mmol/L Anion Gap 30.1 H (5-19) BUN 5 L (6-20) mg/dL Creatinine 0.6 (0.5-0.9) mg/dL GFR Calculation 109.6 (90-130) mL/min Glucose 84 (65-115) mg/dL Calculated Osmolal ity 284 L (285-295) mOsm/k g Lactic Acid 2.7 H (0.5-2.2) mmol/L Lactic Acid (Sepsi s) (0.5-2.2) mmol/L Calcium 8.4 L (8.5-10.5) mg/dL Total Bilirubin 1.4 H (0.15-1.2) mg/dL AST 70 H (0-32) U/L ALT 67 H (0-33) U/L Alkaline Phosphata se 353 H (35-105) IU/L Troponin T Gen 5 n g/L (0-10) ng/L Total Protein 7.3 (6.6-8.7) g/dL Albumin 2.2 L (3.5-5.2) g/dL Globulin 5.1 H (1.3-4.6) g/dL Lipase 131 H (13-60) U/L HCG, Qual (Negative) Urine Color (Yellow) Urine Appearance (CLEAR) Urine pH (5-7) Ur Specific Gravit y (1.005-1.030) Urine Protein (Negative) Urine Glucose (UA) (Normal) Urine Ketones (Negative) Urine Blood (Negative) Urine Nitrate (Negative) Urine Bilirubin (Negative) Urine Urobilinogen (Negative) mg/dL Ur Leukocyte Agata ase (Negative) Urine RBC (0-2) /hpf Urine WBC (0-5) /hpf Ur Squamous Epith Cells (0-5) /hpf Amorphous Sediment Urine Bacteria (NONE) /hpf Urine Mucus /hpf 01/18/20 01/18/20 01/18/20 Range/Units 13:02 13:02 14:12 WBC (4.0-10.0) 10^3/ uL RBC (4.1-5.3) 10^6/u L Hgb (11.5-15.3) g/dL Hct (37.0-47.0) % MCV (81-99) fL MCH (28.0-34.0) pg MCHC (30.0-36.0) g/dL RDW (12.1-15.1) % Plt Count (130-400) 10^3/c mm MPV (7.4-10.4) fL Neut % (Auto) % Lymph % (Auto) % Wharton % (Auto) % Eos % (Auto) % Baso % (Auto) % Neut # (Auto) (1.8-7.7) 10^3/u L Lymph # (Auto) (0.8-4.8) 10^3/u L Wharton # (Auto) (0.2-0.9) 10^3/u L Eos # (Auto) (0.0-0.8) 10^3/u L Baso # (Auto) (0.0-0.1) 10^3/u L Nucleated RBC % (a uto) % Nucleated RBCs # /100WBC Specimen Type Sample Site ABG pH (7.35-7.45) ABG pCO2 (35-45) mmHg ABG pO2 (80.0-100.0) mmH g ABG HCO3 (22-26) mmol/L ABG Base Excess (-2.0-2.0) mmol/ L João Test Hematocrit (37-47) % O2 Delivery Device FiO2 % [employer] Manager ID Sodium (136-145) mmol/L Potassium (3.5-5.1) mmol/L Chloride (98-107) mmol/L Carbon Dioxide (22-29) mmol/L Anion Gap (5-19) BUN (6-20) mg/dL Creatinine (0.5-0.9) mg/dL GFR Calculation (90-130) mL/min Glucose (65-115) mg/dL Calculated Osmolal ity (285-295) mOsm/k g Lactic Acid (0.5-2.2) mmol/L Lactic Acid (Sepsi s) (0.5-2.2) mmol/L Calcium (8.5-10.5) mg/dL Total Bilirubin (0.15-1.2) mg/dL AST (0-32) U/L ALT (0-33) U/L Alkaline Phosphata se (35-105) IU/L Troponin T Gen 5 n g/L 6 (0-10) ng/L Total Protein (6.6-8.7) g/dL Albumin (3.5-5.2) g/dL Globulin (1.3-4.6) g/dL Lipase (13-60) U/L HCG, Qual Negative (Negative) Urine Color Yellow (Yellow) Urine Appearance Clear (CLEAR) Urine pH 6 (5-7) Ur Specific Gravit y 1.010 (1.005-1.030) Urine Protein Neg (Negative) Urine Glucose (UA) Norm (Normal) Urine Ketones 1+ H (Negative) Urine Blood 2+ H (Negative) Urine Nitrate Negative (Negative) Urine Bilirubin Neg (Negative) Urine Urobilinogen Neg (Negative) mg/dL Ur Leukocyte Agata ase Trace H (Negative) Urine RBC 0-4 H (0-2) /hpf Urine WBC 5-10 H (0-5) /hpf Ur Squamous Epith Cells 10-15 H (0-5) /hpf Amorphous Sediment Not Reportable Urine Bacteria 2+ H (NONE) /hpf Urine Mucus Trace /hpf 01/18/20 01/18/20 Range/Units 15:09 16:32 WBC (4.0-10.0) 10^3/ uL RBC (4.1-5.3) 10^6/u L Hgb (11.5-15.3) g/dL Hct (37.0-47.0) % MCV (81-99) fL MCH (28.0-34.0) pg MCHC (30.0-36.0) g/dL RDW (12.1-15.1) % Plt Count (130-400) 10^3/c mm MPV (7.4-10.4) fL Neut % (Auto) % Lymph % (Auto) % Wharton % (Auto) % Eos % (Auto) % Baso % (Auto) % Neut # (Auto) (1.8-7.7) 10^3/u L Lymph # (Auto) (0.8-4.8) 10^3/u L Wharton # (Auto) (0.2-0.9) 10^3/u L Eos # (Auto) (0.0-0.8) 10^3/u L Baso # (Auto) (0.0-0.1) 10^3/u L Nucleated RBC % (a uto) % Nucleated RBCs # /100WBC Specimen Type Arterial Sample Site Brachial, right ABG pH 7.39 (7.35-7.45) ABG pCO2 27.9 L (35-45) mmHg ABG pO2 96.8 (80.0-100.0) mmH g ABG HCO3 17.0 L (22-26) mmol/L ABG Base Excess -6.9 L (-2.0-2.0) mmol/ L João Test N/a Hematocrit 30.1 L (37-47) % O2 Delivery Device Room air FiO2 21.0 % [employer] Manager ID Ed Sodium (136-145) mmol/L Potassium (3.5-5.1) mmol/L Chloride (98-107) mmol/L Carbon Dioxide (22-29) mmol/L Anion Gap (5-19) BUN (6-20) mg/dL Creatinine (0.5-0.9) mg/dL GFR Calculation (90-130) mL/min Glucose (65-115) mg/dL Calculated Osmolal ity (285-295) mOsm/k g Lactic Acid (0.5-2.2) mmol/L Lactic Acid (Sepsi s) 1.0 (0.5-2.2) mmol/L Calcium (8.5-10.5) mg/dL Total Bilirubin (0.15-1.2) mg/dL AST (0-32) U/L ALT (0-33) U/L Alkaline Phosphata se (35-105) IU/L Troponin T Gen 5 n g/L (0-10) ng/L Total Protein (6.6-8.7) g/dL Albumin (3.5-5.2) g/dL Globulin (1.3-4.6) g/dL Lipase (13-60) U/L HCG, Qual (Negative) Urine Color (Yellow) Urine Appearance (CLEAR) Urine pH (5-7) Ur Specific Gravit y (1.005-1.030) Urine Protein (Negative) Urine Glucose (UA) (Normal) Urine Ketones (Negative) Urine Blood (Negative) Urine Nitrate (Negative) Urine Bilirubin (Negative) Urine Urobilinogen (Negative) mg/dL Ur Leukocyte Agata ase (Negative) Urine RBC (0-2) /hpf Urine WBC (0-5) /hpf Ur Squamous Epith Cells (0-5) /hpf Amorphous Sediment Urine Bacteria (NONE) /hpf Urine Mucus /hpf Critical Care Time Critical Care Time: Critical Care Time: Yes Total Critical Care Time: 35 Attestation: This case had a high probability of a clinically significant, sudden, or life threatening deterioration of this patient's condition which required my full and direct attention, intervention and personal management. Discharge Plan Discharge Patient Disposition: Admitted As Inpatient Clinical Impression: Acute pancreatitis Qualifiers: Pancreatitis type: unspecified pancreatitis type Condition: Stable Coding Level of Care Code ED Vehicle Window Tinter for Aditi Fwd Exam Comprehensive
--- NOTE | 2020-01-18 12:29 | CT_ITS ---
WS: [id number] CT abdomen pelvis w con* [id number] REASON FOR EXAM: abdom pain, n/v IV CONTRAST ADMINISTERED: 75 mL of Omnipaque 300 TOTAL EXAM DLP: 272.[address] scans at [facility] use at least one of these dose optimization techniques: automat ed exposure control; mA and/or kV adjustment per patient size (includes targeted exams where dose is matched to clinical indication); or iterative reconstruction. FINDINGS: Comparison CT scan 12/19/2019. Previous CT scan demonstrated interstitial edematous pancreatitis. Compared to the previous examinati on the inflammatory Peripancreatic inflammatory process has increased significantly extending medially, anteriorly, and s uperiorly. There are multiple defined and ill-defined areas of low-attenuation and heterogeneous cont rast enhancement. There is thickening of Gerota's fascia on the left. The pancreas still appears to enhance over all, but contains some ill-defined areas of low attenuatio n near the junction of the pancreatic head and body. Inflammatory changes in the pancreas have progre ssed compared to the previous exam. There are multiple large varices present especially within the gastric wall. The splenic vein is not visualized. These findings were present on the previous examination but not reported. The gallbladder remains moderately distended with enhancing wall. There is debris/sludge in the depen dent portion of the gallbladder. Fatty infiltration of the liver again noted. No significant dilatati on of the bile ducts. No free fluid is identified. Renal cysts and left ovarian cystic lesion again identified. CT/CT abdomen pelvis w con* [id number] IMPRESSION: Progression of pancreatic and peripancreatic inflammation as above. Overall morales creas enhances normally however there are some areas of concern for pancreatic necrosis. There are areas of walled off necrosis and acute walled off peripancr eatic fluid collections in the peripancreatic inflammatory process. 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 Significant gallbladder distention which does not appear to change significantl y.
[2020-01-18] MEDS: ondansetron 2 mg/ML SDV 2 mL 4 MG IVP ×2 (13:10→19:36)
[2020-01-18] MEDS: morphine 4 mg/mL SDV 1 mL IVP ×3 (13:11→18:03)
[2020-01-18] MEDS: sodium chloride 0.9% 1,000 ML 999 ML IV ×2 (13:12→15:18)
[2020-01-18 13:13] LABS: Basophils % 0.1 %; Eosinophils % 0.1 %; Hematocrit 28.1 % (37.0-47.0); Hemoglobin 9.5 g/dL (11.5-15.3); Lymphocytes % 6.5 %; Mean Corpuscular HGB Conc 33.8 g/dL (30.0-36.0); Mean Corpuscular Hemoglobin 30.8 pg (28.0-34.0); Mean Corpuscular Volume 91.2 fL (81-99); Mean Platelet Volume 10.7 fL (7.4-10.4); Monocytes # 0.9 10^3/uL (0.2-0.9); Monocytes % 6.1 %; Neutrophils # 12.84 10^3/uL (1.8-7.7); Neutrophils % 85.7 %; Nucleated Red Blood Cells % 0 %; Platelet Count 677 10^3/cmm (130-400); Red Blood Count 3.08 10^6/uL (4.1-5.3); Red Cell Distribution Width 17.5 % (12.1-15.1)
[2020-01-18 13:29] LABS: Lactic Sepsis W/Reflex 2.7 mmol/L (0.5-2.2)
[2020-01-18 13:30] LABS: Alanine Aminotransferase 67 U/L (0-33); Albumin Level 2.2 g/dL (3.5-5.2); Alkaline Phosphatase 353 IU/L (35-105); Aspartate Amino Transferase 70 U/L (0-32); Blood Urea Nitrogen 5 mg/dL (6-20); Calcium 8.4 mg/dL (8.5-10.5); Carbon Dioxide 15 mmol/L (22-29); Chloride 97 mmol/L (98-107); Globulin 5.1 g/dL (1.3-4.6); Glomerular Filtration Rate 109.6 mL/min (90-130); Glucose 84 mg/dL (65-115); Lipase 131 U/L (13-60); Osmolality Calculated 284 mOsm/kg (285-295); Sodium 139 mmol/L (136-145); Total Bilirubin 1.4 mg/dL (0.15-1.2); Total Protein 7.3 g/dL (6.6-8.7)
[2020-01-18 13:32] LABS: Anion Gap 30.1 (5-19); Potassium 3.1 mmol/L (3.5-5.1)
[2020-01-18 13:45] LABS: HCG, Serum Qual Negative (Negative)
[2020-01-18] MEDS: iohexol 300 mg/mL 100 mL Btl IV (13:50)
--- NOTE | 2020-01-18 13:57 | ECG_ITS ---
[facility] Test Date: 2020-01-18 Pat Name: Arvin Whiting Department: Room: Gender: Female Jira Administrator: : [id number] Requested By: Mike Gilman Order Number: [id number] Lito MD: KAILEY BECKHAM Measurements Intervals [place] Rate: 117 P: 75 AK: 107 QRS: 68 QRSD: 80 T: 18 QT: 428 QTc: 598 Interpretive Statements SINUS TACHYCARDIA WITH SHORT AK INTERVAL ST DEVIATION AND MODERATE T-WAVE ABNORMALITY, CONSIDER ANTEROLATERAL ISCHEMIA [-0.1+ mV T WAVE IN V3-V6] ST DEVIATION AND MODERATE T-WAVE ABNORMALITY, CONSIDER INFERIOR ISCHEMIA [-0.1+ mV T WAVE IN II/aVF] Compared to ECG 12/19/2019 12:36:03 Sinus rhythm no longer present T-wave abnormality still present Possible ischemia still present Electronically Signed On 01-19-2020 19:29:48 RECONCILIATION ACCOUNTANT by KAILEY BECKHAM [id number]
[2020-01-18 14:26] LABS: Troponin T (5th) Once 6 ng/L (0-10)
[2020-01-18 14:40] LABS: Bilirubin Urine Neg (Negative); Blood Urine 2+ (Negative); Glucose Urine UA Norm (Normal); Ketones Urine 1+ (Negative); Leukocyte Esterase Urine Trace (Negative); Nitrate Urine Negative (Negative); Protein Urine Neg (Negative); Urine Appearance Clear (CLEAR); Urine Color Yellow (Yellow); Urobilinogen Urine Neg (Negative); pH Urine 6 (5-7)
[2020-01-18 14:41] LABS: Add Urine Culture? No; Bacteria Urine 2+ /hpf; Mucus Urine TRACE /hpf; RBC Urine 0-4 /hpf (0-2)
[2020-01-18 14:57] LABS: Reflex Lactate Order REFLEX LACTIC ORDERD
[2020-01-18 15:20] LABS: ABG PCO2 27.9 mmHg (35-45); ABG PH Result 7.39 (7.35-7.45); Arterial Blood Gas Hematocrit 30.1 % (37-47); Base Excess ABG -6.9 mmol/L (-2.0-2.0); Blood Gas Operator Identificat ED; Blood Gas Sample Site Brachial, right; Blood Gas Sample Type Arterial; Oxygen Device ROOM AIR; PO2 ABG 96.8 mmHg (80.0-100.0)
[2020-01-18] MEDS: piperacillin-tazobactam 3.375 GM in sodium chloride 0.9% (plus) 50 ML IV (16:27)
--- NOTE | 2020-01-18 17:18 | USR_ITS ---
PROCEDURE INFORMATION: Exam: US Abdomen, Limited; Right Upper Quadrant Exam date and time: 01/18/2020 6:15 PM Age: 44 years old Clinical indication: Abdominal pain; Additional info: Abd pain TECHNIQUE: Imaging protocol: US abdomen. Real time ultrasound with image documentation. Limited exam focused on the right upper quadrant. COMPARISON: US gall bladder [id number] 12/19/2019 12:51 PM FINDINGS: Liver: The liver is echogenic with attenuation of the ultrasound beam compatible with probable fatty infiltration. The liver measures 15.2 cm in length. Gallbladder: There is sludge versus nonshadowing stones in the gallbladder. The gallbladder wall is thickened measuring 3.9 mm. Flow no stones or sludge is identified in the common bowel duct. Common bile duct: The common bile duct is abnormal measuring 1.24 cm. Pancreas: The pancreas is not well visualized due to bowel gas artifact. Right kidney: There is a cluster of midpole multiloculated/multi septated cysts right kidney measuring 4.7 x 4.5 x 2.9 cm. There is no right hydronephrosis. No right nephrolithiasis. The right kidney measures 11.7 cm in length. US/US gall bladder [id number] IMPRESSION: 1. Cholelithiasis with abnormal gallbladder wall thickening and common bile duct dilatation compatible with cholecystitis. 2. Multi loculated/septated cysts [id number] right kidney. The right kidney is otherwise unremarkable. COMMENTS: Consistent with the [place] [employer]'s Incidental Findings Committee white paper (J Am Juan Radiol 2018): Any incidental renal lesion less than 1 cm or classified as too small to characterize, or any incidental cystic renal lesion characterized as simple-appearing, is likely benign. No follow-up imaging is recommended for these lesions per consensus recommendations based on imaging criteria.
--- NOTE | 2020-01-18 18:29 | PM.HP ---
Providers/Chief Complaint Chief Complaint: N/V, ABDOMINAL PAIN History of Present Illness Arvin Whiting is a 44 year old female with recurrent pancreatitis returns to the hospital due to progressive nausea vomiting and mid abdominal pain. Lipase is moderately elevated at 131. She has had very poor appetite, unable to keep much food or drink. Dry heaving. Denies diarrhea. Denies fevers at home. Here with leukocytosis 15,000, sinus tachycardia 111. Nonspecific ST deviation. No chest pain. Troponin normal. Dirty urine sample is noted. Mild hypokalemia 3.1, metabolic acidosis, bicarb 15, anion gap 30.1, lactic acid 2.7, T bili 1.4, AST 70, ALT 67, alk phos 353. CT abdomen pelvis with progression of pancreatic and peripancreatic inflammation, with overall normal enhancing pancreas, but with areas of concern for necrosis, areas of walled off necrosis and acute walled of peripancreatic fluid collections in peripancreatic inflammatory process. 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 Significant gallbladder distention is noted, unchanged from prior. Biliary ultrasound is pending. She denies any hematemesis. Hemoglobin is 9.5 which is similar to where she was during prior admission. At that time was treated for episode of acute pancreatitis, suspected gastritis, with improvement, and on discharge referred for follow-up with gastroenterology. She states has not followed up with a specialist, states she did not remember which physician she was following up with at [facility]. She has a history of pancreatitis in the past, previously reports with aspiration of fluid around the pancreas, as well as biliary stent placement. Reports a definitive cause of her pancreatitis is not identified. During prior admission MRCP was being set up, however, could not be obtained due to history of brain aneurysm coil. Unless there is sign of cholangitis on ultrasound, at which point as discussed with her in ER physician would not require transfer for ERCP within 24 hours, she otherwise is agreeable to stay in the hospital here to initiate additional treatment and assessment. She prefers to initiate treatment here as opposed to seeking transfer to higher level facility. She understands that there is what appears to be necrotic pancreatitis, and with possible deterioration surgical necrosectomy would not be possible here and she would require transfer. Surgical consultation is obtained in ER for additional assessment of necrotic pancreatitis as well as splenic vein thrombosis and gastric varices. She and her understand that she is at risk for deterioration. They understand that she also needs gastroenterology assessment given we are limited in evaluation with inability to obtain MRCP to exclude additional causes of pancreatitis, potential stricture, or malignancy. They state understand, and states that he knows she probably will need eventually to again be assessed perhaps by ERCP, possibly endoscopic ultrasound. He is considering perhaps taking her for evaluation in [place] which would be closer for them. She reports that she has now stopped taking any alcohol whatsoever since last admission, although she does still smoke cigarettes. Review of Systems Const: Reports: change in appetite and malaise; Denies: fever(s), chills or body aches Eyes: Denies: change in vision or eye redness ENMT: Denies: throat pain, oral sores or ear or mastoid pain Card: Denies: chest pain, edema, pre-syncope or dyspnea on exertion Resp: Denies: dyspnea, productive cough, change in phlegm color or hemoptysis GI: Reports: abdominal pain, nausea and vomiting; Denies: diarrhea, constipation, hematochezia or melena : Denies: flank pain, urinary frequency or hematuria Musc: Denies: back pain, joint swelling or joint redness Skin/Breast: Denies: rash, sores or new lesions Neuro: Denies: headache(s), numbness in extremities, weakness in extremities, dizziness, confusion or seizure-like activity Endo: Denies: polyuria or polydipsia Tom/Lymph: Denies: easy bleeding or purpura All/Imm: Denies: urticaria, throat swelling or tongue swelling Medications/Allergies Home Medications Medication Instructions Recorded Confirmed Last Taken Type acetaminophen [Tylenol Extra 1,000 mg PO PRN 12/19/19 01/18/20 01/17/20 History Strength] diphenhydramine HCl [Benadryl] 75 mg PO PRN 12/19/19 01/18/20 Unknown History fluoxetine 40 mg PO DAILY 12/19/19 01/18/20 01/17/20 History levothyroxine [Euthyrox] 25 mcg PO DAILY 12/19/19 01/18/20 01/17/20 History trazodone 150 mg PO BEDTIME 12/19/19 01/18/20 01/17/20 History pantoprazole 40 mg PO BID 42 Days #84 tab 12/21/19 01/18/20 01/17/20 Rx melatonin 10 mg PO BEDTIME 01/18/20 01/18/20 01/17/20 History Allergies Allergy/AdvReac Type Severity Reaction Status Date / Time codeine Allergy ALGY-Swell Verified 01/18/20 12:14 Lip/Tongue/Throat meperidine [From Demerol] Allergy ADR-Swelling Verified 01/18/20 12:14 of the Eye PFSH Acute PFSH: Medical History Pancreatitis Smoking addiction Surgical History History of biliary duct stent placement History of biliary stenting and removal. Possible biliary leak. History of History of right oophorectomy S/P clamping of cerebral aneurysm Family History Other No significant family history Social History Smoking and tobacco status: current every day smoker cigarettes Packs smoked per day: 0.5 Other details last alcohol use: Denies further alcohol intake since last admit. Lives independently: Yes Household members: spouse Marital status: Current occupational status: unemployed Female Reproductive History: Date of last menstrual period: 12/19/19 Vitals/I&O/Wt Last Vital Signs Temp 98.0 F 01/18/20 12:09 Pulse 111 H 01/18/20 18:00 Resp 24 H 01/18/20 18:03 BP 122/84 01/18/20 18:00 Pulse Ox 100 01/18/20 18:00 Weight last 48 hrs Weight 55.792 kg Physical Exam Const: COMMON NORMALS: no acute distress and patient oriented x3 NUTRITIONAL APPEARANCE: thin OTHER: Moving around in bed, due to nausea, having episode of dry, after drinking some water small episode of vomiting. During the interview requested the nurse to take her to the restroom to urinate. Subsequently request for pain medication. HENMT: COMMON NORMALS: oropharynx normal Neck/C-Spine: COMMON NORMALS: no JVD Resp: COMMON NORMALS: normal respiratory effort and clear to auscultation bilaterally AUSCULTATION: clear to auscultation bilaterally Cardio: COMMON NORMALS: no JVD, regular rhythm, S1 normal heart sound present, S2 normal heart sound present and No murmurs present (Cardio) RHYTHM: regular rhythm HEART SOUNDS: S1 normal heart sound present and S2 normal heart sound present GI: COMMON NORMALS: Normal to inspection, nondistended, normoactive bowel sounds present, Soft to palpation and non-tender PALPATION: Yes Tenderness to palpation present (GI) (Mid abdomen) Extremity: COMMON NORMALS: no joint enlargement and no pedal edema Neuro: COMMON NORMALS: patient oriented x3 and moves all extremities Skin: COMMON NORMALS: no rashes or lesions noted GENERAL SKIN EXAM: no rashes or lesions noted Data : 01/18/20 13:02 01/18/20 13:02 Micro: Microbiology 01/18/20 13:14 Blood Culture - Preliminary Blood SPECIMEN COLLECTED A&P Assessment and plan (1) Acute pancreatitis: Discussed concern for necrotic pancreatitis, cannot exclude infection, possible abscess. She has been understand that if additional surgical intervention/necrosectomy was necessary this is not possible at our facility. Discussed imaging also with our interventional radiologist. He is not able to see a good/safe target at this time. We may try prescription to repeat CT scan with oral contrast to delineate bowel better. Discussed this with her and her . They are agreeable. Discussed with her NG tube may need to be placed to be able to perform CT with oral contrast given vomiting. They both do understand that she ultimately does need to be still seen by gastroenterology, and depending on her condition still may necessitate transfer. For now. Would like to stay here with initiation of treatment measures available here, with bowel rest, pain medication, nausea control, IV hydration, and additional assessment. Due to concern for possible underlying infection, possible sepsis, they are agreeable to antibiotic therapy. She is already received Zosyn in ER, will continue. If we are able to obtain CT with oral contrast radiology may try to aspirate one of the fluid collections. Ultimately she will need additional assessment by ERCP probably, possibly EUS, given she cannot have MRCP as attempted previously during last hospitalization. She does state that she has stopped drinking alcohol since last admission, but I am not sure whether this actually may be still playing a role given she was here in ER on 12/27, and reported drinking some wine, and at that time noted again with pancreatitis, and with lipase higher than current at 369. She had previously followed with gastroenterology in [facility], it previously a reported bile duct stent placed, in addition to endoscopic evaluation, not clear reason, possible biliary leak? She was asked to follow-up with gastroenterology after last discharge, however, states has not done so because did not remember which physician she was supposed to see in [facility]. states they are thinking instead of following up in [place] which is closer to them. Discussed again importance that she needs additional assessment as discussed previously MRCP cannot be obtained, and stricture, or even malignancy as cause of recurrent pancreatitis would need to be excluded and cannot be done here. She is also noted to have complication of pancreatitis with splenic vein thrombosis with gastric varices. Due to these conditions surgical evaluation was obtained in ER as well. Pending gallbladder ultrasound just came back, showing gallbladder sludge or cholelithiasis with wall thickening, CBD dilation concerning for cholecystitis. Discussed with surgery. Unfortunately we are unable to obtain MRI to additionally assess these findings. As per discussion with surgery discussed with ER physician recommendation would be for her to undergo additional assessment including ERCP which cannot be performed at our facility. Transfer will be sought to a higher level facility to allow for additional GI evaluation and treatment. Status: Acute Qualifiers: Pancreatitis type: unspecified pancreatitis type (2) Splenic vein thrombosis: Monitor for any bleeding. Continue PPI. Only heparin for DVT prophylaxis. Avoid excessive anticoagulation. Status: Acute (3) Gastric varices: PPI. Monitor for any bleeding Status: Acute (4) Gallbladder dilatation: See above Status: Acute (5) Hypokalemia: Status: Acute (6) Smoking addiction: Status: Acute Attestations Medical Necessity Statement*: With current diagnostic findings transfer to higher level facility for additional evaluation by gastroenterology and ERCP for recurrent pancreatitis, possible necrotic pancreatitis, concern for infection is recommended. Coding Level of Care Code Acute Speech And Language Tutor for [facility] Fwd Exam Comprehensive Diagnoses Acute pancreatitis K85.90 Pancreatitis type: unspecified pancreatitis type Splenic vein thrombosis I82.890 Gastric varices I86.4 Gallbladder dilatation K82.8 Hypokalemia E87.6 Smoking addiction F17.200
[2020-01-18] MEDS: HYDROmorphone 1 mg/mL INJ 1 mL IVP (19:35)
--- NOTE | 2020-01-18 21:27 | PC.NURSE ---
Attempt to call report- on hold 15 minutes- will try again in 10- 20 minutes
--- NOTE | 2020-01-18 21:50 | PC.NURSE ---
Report to Helen Hodges RN at [facility]
== END 2020-01-18 22:30 | disposition admitted as inpatient to this hospital (09) ==
PROVIDERS: Physician Assistant; Emergency Provider Emergency Medicine
DX: K85.90 Acute pancreatitis without necrosis or infection, unspecified (principal); F17.210 Nicotine dependence, cigarettes, uncomplicated
CPT/HCPCS: 12345; 36415; 36600; 74177; 76705; 80053; 81001; 82803; 83605; 83690; 84484; 84703; 85025; 87040; 93005; 96361; 96374; 96375; 96376; 99284; 99285; J1170; J2270; J2405; J2543; J7030; Q9967